=== PATIENT | female | born 1980 | race Caucasian/White ===

== ENCOUNTER 2020-04-30 06:57 | Outpatient (NON) | payer OTHER, SELFPAY ==
[2020-04-30 18:51] LABS: SARS-CoV-2 RNA PCR Negative
== END 2020-04-30 06:58 ==
PROVIDERS: PCP Family Medicine Adolescent Medicine; Visit Provider Family Medicine Adolescent Medicine
DX: Z20.828 Contact with and (suspected) exposure to other viral communicable diseases (principal); R05 Cough; R50.9 Fever, unspecified
CPT/HCPCS: 87635; C9803; U0003

== ENCOUNTER 2021-08-26 14:52 | Outpatient (CLI) | payer OTHER, SELFPAY ==
--- NOTE | ~2021-08-26 | MM_ITS ---
EXAMINATION: MM screening shivani BI w rosy HISTORY: Screening TECHNIQUE: Craniocaudal and mediolateral oblique 3-D tomosynthesis images were obtained and synthetic 2-D images were generated. CAD analysis was submitted and interpreted. COMPARISON: No prior mammogram is available for comparison at this institution. BREAST PARENCHYMAL COMPOSITION: There are scattered areas of fibroglandular density. FINDINGS: There are nodules centered in the outer aspect of the right breast which are partially obsc ured by fibroglandular tissue. There is no mammographic evidence for malignancy in the left breast. IMPRESSION: 1. Nodular asymmetries in the right breast. 2. Additional mammographic views and possible breast ultrasound are recommended. BI-RADS Category 0: Incomplete: Needs additional imaging evaluation. Reviewed, dictated and finalized at location A. IMPRESSION: 1. Nodular asymmetries in the right breast. 2. Additional mammographic views and possible breast ultrasound are recommended . BI-RADS Category 0: Incomplete: Needs additional imaging evaluation.
== END 2021-08-26 14:53 | disposition home or self-care (01) ==
LOC: ANHIMG 14:54
PROVIDERS: PCP Family Medicine Adolescent Medicine; Visit Provider Obstetrics & Gynecology
DX: Z12.31 Encounter for screening mammogram for malignant neoplasm of breast (principal); R92.8 Other abnormal and inconclusive findings on diagnostic imaging of breast
CPT/HCPCS: 77063; 77067

== ENCOUNTER 2021-12-05 13:37 | Outpatient (CLI) | payer OTHER, SELFPAY ==
--- NOTE | ~2021-12-05 | MMUS_ITS ---
EXAMINATION: MM diagnostic shivani RT w rosy, US breast RT limited HISTORY: Right breast asymmetries on screening mammogram TECHNIQUE: Additional 3-D tomosynthesis images of the right breast were performed and synthetic 2-D i mages were generated. CAD analysis was submitted and interpreted. High resolution limited right breas t ultrasound was performed. COMPARISON: 08/26/2021 BREAST PARENCHYMAL COMPOSITION: There are scattered areas of fibroglandular density. FINDINGS: MAMMOGRAPHIC FINDINGS: There is a 5 mm oval, obscured, equal density mass in the anterior third of the lower-outer breast at the 8:00 location 2.5 cm from the nipple. There appears to be an 8 mm oval, obscured, low density ma ss in the middle third of the upper outer quadrant of the breast at the 10:00 location 4 cm from the nipple. ULTRASOUND: A mass with the appearance of an intramammary lymph node is seen at the 7:00 location 3 cm from the n ipple. No sonographic correlate is identified for the apparent low-density mass in the upper outer br east. IMPRESSION: 1. Probably benign mass versus asymmetry in the upper outer quadrant of the right breast. 2. Recommend 6 month follow-up right diagnostic mammogram with possible ultrasound. BI-RADS category 3, probably benign findings. Reviewed, dictated and finalized at location A. IMPRESSION: 1. Probably benign mass versus asymmetry in the upper outer quadrant of the rig ht breast. 2. Recommend 6 month follow-up right diagnostic mammogram with possible ultraso und. BI-RADS category 3, probably benign findings.
== END 2021-12-05 13:38 | disposition home or self-care (01) ==
LOC: ANHIMG 13:39
PROVIDERS: PCP Family Medicine Adolescent Medicine; Visit Provider Obstetrics & Gynecology
DX: R92.8 Other abnormal and inconclusive findings on diagnostic imaging of breast (principal)
CPT/HCPCS: 76642; 77061; 77065; G0279

== ENCOUNTER 2022-08-27 13:55 | Outpatient (CLI) | payer OTHER, SELFPAY ==
--- NOTE | ~2022-08-27 | MMUS_ITS ---
EXAMINATION: MM diagnostic shivani BI w rosy, US breast RT complete HISTORY: Follow-up right breast mass TECHNIQUE: Additional 3-D tomosynthesis images of the breasts were performed and synthetic 2-D images were generated. CAD analysis was submitted and interpreted. High resolution complete right breast ul trasound was performed. COMPARISON: 09/05/2021 BREAST PARENCHYMAL COMPOSITION: Breast composed of scattered areas of fibroglandular density FINDINGS: MAMMOGRAPHIC FINDINGS: Stable 5 mm mass lower outer quadrant of the right breast anteriorly. No new masses, calcifications o r architectural distortion ULTRASOUND: Complete US of all 4 quadrants of the right breast and retroareolar region was reviewed. Normal heter ogeneous echotexture without focal solid or cystic mass. IMPRESSION: 1. Stable right breast mass lower outer quadrant anteriorly without definite sonographic correlate on current study. 2. Recommend 6 month follow-up diagnostic right mammogram. BI-RADS category 3, probably benign findings. Reviewed, dictated and finalized at location A. IMPRESSION: 1. Stable right breast mass lower outer quadrant anteriorly without definite so nographic correlate on current study. 2. Recommend 6 month follow-up diagnostic right mammogram. BI-RADS category 3, probably benign findings.
== END 2022-08-27 13:56 | disposition home or self-care (01) ==
PROVIDERS: PCP Family Medicine Adolescent Medicine; Visit Provider Obstetrics & Gynecology
DX: N63.13 Unspecified lump in the right breast, lower outer quadrant (principal)
CPT/HCPCS: 76641; 77062; 77066; G0279

== ENCOUNTER 2023-07-24 18:23 | Emergency (ER) | payer OTHER, SELFPAY ==
--- NOTE | ~2023-07-24 | XR_ITS ---
EXAMINATION: XR chest 2V Exam Date/Time: 07/24/2023 19:04 [employer] [employer] HISTORY: SOB Comparison: 10/07/2016. RESULT: Lines, tubes, and devices: None. Lungs and pleura: Clear. Cardiomediastinal silhouette: Stable. Other: No acute osseous or upper abdominal finding. IMPRESSION: No acute cardiopulmonary process. Reviewed, dictated and finalized at location K. [facility] [employer]
[2023-07-24 18:30] VITALS: BP 145/87; PULSE 106; RESP 18; TEMP 36.8; O2SAT 99
--- NOTE | 2023-07-24 18:33 | ECG_ITS ---
Measurements Intervals [place] Rate: 102 P: 50 HI: 157 QRS: 15 QRSD: 87 T: 13 QT: 330 QTc: 431 Interpretive Statements SINUS TACHYCARDIA POSSIBLE LEFT ATRIAL ENLARGEMENT DELAYED PRECORDIAL R/S TRANSITION BORDERLINE ST-T WAVE ABNORMALITY- INFERIOR LEADS BORDERLINE ECG NO PREVIOUS ECG AVAILABLE FOR COMPARISON Electronically Signed On 07-24-2023 20:40:27 CONTROL CLERK AUDITING by Nash Frost D.O.
[2023-07-24 18:52] LABS: Basophils Percent Auto 0.3 % (0.2-1.2); Eosinophils Absolute Auto 0.2 K/mm3 (0-0.3); Eosinophils Percent Auto 2.4 % (0-4.4); Hematocrit 39.4 % (37.0-47.0); Hemoglobin 12.7 g/dL (12.0-15.0); Immature Granulocyte Absolute 0.01 K/mm3 (0.00-0.031); Immature Granulocyte Percent A 0.1 % (0-0.5); Lymphocytes Percent Auto 40.4 % (18.3-44.2); Mean Corpuscular HGB Conc 32.2 g/dl (32-36); Mean Corpuscular Hemoglobin 29.7 pg (26-34); Mean Corpuscular Volume 92.3 fl (80-100); Mean Platelet Volume 8.9 fl (7.4-10.4); Monocytes Absolute Auto 0.8 K/mm3 (0.1-0.6); Monocytes Percent Auto 10.5 % (2.6-8.5); Neutrophils Absolute Auto 3.4 K/mm3 (1.3-6.7); Neutrophils Percent Auto 46.3 % (45.5-73.1); Platelet Count Result 293 k/mm3 (150-375); Red Blood Count 4.27 M/mm3 (4.2-5.4); Red Cell Distribution Width 12.5 % (11.5-14.5); White Blood Count 7.4 K/mm3 (4.5-10.0)
[2023-07-24 19:06] LABS: Alanine Aminotransferase 25 U/L (6-35); Albumin Level 4.1 g/dL (3.5-5.1); Alkaline Phosphatase 66 U/L (38-126); Anion Gap 8 mmol/L (8-16); Aspartate Amino Transferase 28 U/L (14-36); Bilirubin,Total 0.3 mg/dL (0.2-1.3); Blood Urea Nitrogen 11 mg/dL (7-17); Calcium 9.1 mg/dL (8.4-10.2); Carbon Dioxide 24 mmol/L (22-30); Chloride 108 mmol/L (98-107); Estimated CRCL calculation 110 ml/min; Estimated Glomerular Filt Rate > 60; Glucose 104 mg/dL (65-110); Potassium 3.4 mmol/L (3.4-5.0); Sodium 140 mmol/L (137-145)
[2023-07-24 19:17] VITALS: PULSE 89; RESP 17; O2SAT 99
--- NOTE | 2023-07-24 19:55 | ED.DIZZY ---
HPI - Dizziness General Chief Complaint: Dizziness <Darian Nixon PA-C - Last Filed: 07/25/23 01:10> Stated Complaint: dizzy, sob, nausea <Darian Nixon PA-C - Last Filed: 07/25/23 01:10> Time Seen by Provider: 07/24/23 19:05 <Darian Nixon PA-C - Last Filed: 07/25/23 01:10> Source: patient <Darian Nixon PA-C - Last Filed: 07/25/23 01:10> Mode of arrival: ambulatory <JULIETTE Aldridge Last Filed: 07/25/23 01:10> Limitations: no limitations <Darian Nixon PA-C - Last Filed: 07/25/23 01:10> History of Present Illness HPI Narrative: This is a 43-year-old who presents to the ED for chief complaint of shortness of breath and dizziness onset 30 minutes ago. Patient tried a 10 mg a THC gummy for the 1st time tonight and had a couple of glasses of alcohol as well. She does not normally drink. States that she started to feel little lightheaded hand her heart rate was elevated on her watch. This caused her to become anxious and come to the ED. since arrival she states symptoms are starting to resolve. <Darian Nixon PA-C - Last Filed: 07/25/23 01:10> Related Data Home Medications: Home Medications Medication Instructions Recorded Confirmed biotin 10,000 mcg chewable tablet mcg PO 07/10/22 07/10/22 (Hair, Skin and Nails (biotin)) desogestrel-e.estradiol 0.15 1 tablet PO DAILY 07/10/22 07/10/22 mg-0.02 mg(21)/e.estrad 0.01 mg(5) tablet (Viorele (28)) lactobacillus combination no.4 3 3,000 mmu cells PO DAILY 07/10/22 07/10/22 billion cell capsule (Probiotic) <JULIETTE Aldridge Last Filed: 07/25/23 01:10> Allergies/Adverse Reactions: Allergies Allergy/AdvReac Type Severity Reaction Status Date / Time latex tape Allergy Mild rash Uncoded 07/10/22 10:19 <Darian Nixon PA-C - Last Filed: 07/25/23 01:10> Review of Systems Review of Systems: All systems as dictated in HPI <Darian Nixon PA-C - Last Filed: 07/25/23 01:10> [facility] Surgical History Surgical History: Surgical History History of tonsillectomy <Darian Nixon PA-C - Last Filed: 07/25/23 01:10> Family History Family History: Family History Mother Family history of osteoarthritis Grandparent Malignant neoplasm of prostate <Darian Nixon PA-C - Last Filed: 07/25/23 01:10> Social History Social History: Social History Smoking status: Never smoker Alcohol intake: current <Darian Nixon PA-C - Last Filed: 07/25/23 01:10> Exam Narrative: GENERAL: Well-appearing, well-nourished, and in no acute distress. HEAD: Normocephalic, atraumatic. EYES: PERRLA and EOMI. ENT: Nares clear, no rhinorrhea or epistaxis. Mucous membranes moist. Oropharynx without tonsillar hypertrophy exudate or other lesions. NECK: Supple. No adenopathy or masses. CHEST: No respiratory distress. Clear to auscultation. No wheezes rales or rhonchi HEART: Regular rate and rhythm. No murmur heard. Normal peripheral pulses. ABDOMEN: Soft, nontender, nondistended, normal active bowel sounds. MSK: Normal range of motion. No edema. SKIN: Warm, dry, no rash. NEURO: Alert and oriented x3. No focal deficits. PSYCH: Normal mood and affect. <Darian Nixon PA-C - Last Filed: 07/25/23 01:10> Course Vital Signs Vital signs: Vital Signs Temperature 98.2 F 07/24/23 18:30 Pulse Rate 106 H 07/24/23 18:30 Respiratory Rate 18 03/02/24 18:30 Blood Pressure 145/87 H 07/24/23 18:30 Pulse Oximetry 99 07/24/23 18:30 Oxygen Delivery Room Air 07/24/23 18:30 Temperature 98.2 F 07/24/23 18:30 Pulse Rate 89 07/24/23 19:17 Respiratory Rate 17 07/24/23 19:17 Blood Pressure 145/87 H 07/24/23 18:30 Pulse Oximetry 99 07/24/23 19:17 Oxygen Delivery Room Air 07/24/23 18:30 <Darian
== END 2023-07-24 20:43 | disposition home or self-care (01) ==
PROVIDERS: Emergency Medicine; Emergency Provider Physician Assistant; PCP Family Medicine Adolescent Medicine
DX: F12.90 Cannabis use, unspecified, uncomplicated (principal); R94.31 Abnormal electrocardiogram [ECG] [EKG]; R00.0 Tachycardia, unspecified
CPT/HCPCS: 36415; 71046; 80053; 85025; 93005; 99284

== ENCOUNTER 2023-10-28 14:24 | Outpatient (CLI) | payer OTHER, SELFPAY ==
--- NOTE | ~2023-10-28 | MM_ITS ---
EXAMINATION: MM screening shivani BI w rosy HISTORY: Screening TECHNIQUE: Craniocaudal and mediolateral oblique 3-D tomosynthesis images were obtained and synthetic 2-D images were generated. CAD analysis was submitted and interpreted. COMPARISON: Comparison to multiple prior studies sequentially, with oldest reviewed study dated 09/2021. BREAST PARENCHYMAL COMPOSITION: Not Dense: The breasts are almost entirely fatty. 2 FINDINGS: There is no evidence of suspicious mass, calcification, or architectural distortion to sugg est malignancy in either breast. There has been no suspicious interval change. IMPRESSION: 1. No mammographic evidence of malignancy. 2. Recommend routine screening mammography in one year. BI-RADS Category 1: Negative Reviewed, dictated and finalized at location B.
== END 2023-10-28 14:25 | disposition home or self-care (01) ==
PROVIDERS: PCP Family Medicine Adolescent Medicine; Visit Provider Nurse Practitioner
DX: Z12.31 Encounter for screening mammogram for malignant neoplasm of breast (principal)
CPT/HCPCS: 77063; 77067

== ENCOUNTER 2023-12-25 07:11 | Outpatient (CLI) | payer OTHER, SELFPAY ==
[2023-12-25 07:40] LABS: Alanine Aminotransferase 29 U/L (6-35); Albumin Level 4.3 g/dL (3.5-5.1); Alkaline Phosphatase 72 U/L (38-126); Anion Gap 10 mmol/L (4-12); Aspartate Amino Transferase 31 U/L (14-36); Bilirubin,Total 0.6 mg/dL (0.2-1.3); Blood Urea Nitrogen 13 mg/dL (7-17); Calcium 9.3 mg/dL (8.4-10.2); Carbon Dioxide 25 mmol/L (22-30); Chloride 105 mmol/L (98-107); Cholesterol 193 mg/dL (0-200); Estimated Glomerular Filt Rate > 60; Glucose 97 mg/dL (65-110); HDL Direct 50 mg/dL; Hematocrit 41.2 % (37.0-47.0); Hemoglobin 13.5 g/dL (12.0-15.0); Mean Corpuscular HGB Conc 32.8 g/dl (32-36); Mean Corpuscular Hemoglobin 30.1 pg (26-34); Mean Corpuscular Volume 91.8 fl (80-100); Mean Platelet Volume 8.9 fl (7.4-10.4); Platelet Count Result 279 k/mm3 (150-375); Potassium 4.1 mmol/L (3.4-5.0); Red Blood Count 4.49 M/mm3 (4.2-5.4); Red Cell Distribution Width 12.1 % (11.5-14.5); Sodium 140 mmol/L (137-145); Triglycerides 99 mg/dL (<150); White Blood Count 5.6 K/mm3 (4.5-10.0)
[2023-12-25 07:52] LABS: LDL Cholesterol Direct 107 mg/dL
[2023-12-25 09:16] LABS: Thyroid Stimulating Hormone Reflex 0.659 uIU/mL (0.465-4.68)
== END 2023-12-25 07:12 | disposition home or self-care (01) ==
PROVIDERS: PCP Family Medicine Adolescent Medicine; Visit Provider Nurse Practitioner Family
DX: R00.1 Bradycardia, unspecified (principal); Z13.220 Encounter for screening for lipoid disorders
CPT/HCPCS: 36415; 80053; 80061; 84443; 85027

== ENCOUNTER 2024-11-29 14:46 | Outpatient (CLI) | payer OTHER, SELFPAY ==
--- NOTE | ~2024-11-29 | MM_ITS ---
EXAMINATION: MM screening [facility] BI w rosy HISTORY: Screening TECHNIQUE: Craniocaudal and mediolateral oblique 3-D tomosynthesis images were obtained and synthetic 2-D images were generated. CAD analysis was submitted and interpreted. COMPARISON: Comparison to multiple prior studies sequentially, with oldest reviewed study dated 09/2021. BREAST PARENCHYMAL COMPOSITION: Not Dense: The breasts are almost entirely fatty. FINDINGS: There is no evidence of suspicious mass, calcification, or architectural distortion to sugg est malignancy in either breast. There has been no suspicious interval change. IMPRESSION: 1. No mammographic evidence of malignancy. 2. Recommend routine screening mammography in one year. BI-RADS Category 1: Negative Reviewed, dictated and finalized at location A.
--- OUTSIDE RECORDS SUMMARY | 2024-11-29 14:51 | XMS_ITS | Data Portability ---
Author Organization [facility] [place] Address [address] [place] [address] Care Team Providers Care Custom Dressmaker Name Role Phone GIULIA PURI Primary Care Provider Assessment Encounter Date Assessment Date Assessment LastModified by Organization Details LastModified Time 06/03/2020 06/03/2020 healthy female exam patient declines std testing pap done, discussed guidelines, q 3 years if normal mammogram at 41 contraception- ocp. will try mircette for JOHNSON on placebo. FU 1 year or prn [email or web address] Not available 06/03/2020 16:01:27 07/16/2021 07/16/2021 healthy female exam patient declines std testing pap due 2023 mammogram- first ordered and encouraged contraception-oc p refilled discussed prehypertension. Has a family history. Will work on exercise and weight loss. May start checking pressures at home. FU 1 year or prn [email or web address] Not available 07/16/2021 16:53:20 07/20/2022 07/20/2022 healthy female exam patient declines std testing pap due next year mammogram discussed was supposed to have diagnostic repeated on right breast last month. screening due in August. likely will be august before gets scheduled for orders given for diagnostic of right and screening of left. contraception-oc p refilled, doing well. BP good today. FU 1 year or prn [email or web address] Not available 07/21/2022 09:21:15 08/05/2023 08/05/2023 Annual gynecological exam performed. Patient will come back in a year unless there are new symptoms. [email or web address] Not available 08/05/2023 16:58:23 09/12/2024 09/12/2024 Annual gynecological exam performed. Patient will come back in a year unless there are new symptoms. [email or web address] Not available 09/12/2024 16:28:00 Plan of Treatment Reminders Order Date Submit Date Provider Last Modified By Organization Details Last Modified Time Details Appointments FOLLOW UP 2024 03:45P DARRION Robertson Not available Not available Not available Lab CMP, serum or plasma 2024 025 [facility] (Lab), [address], [place], [address], 09/13/2024 05:23:14 CBC w/ auto diff 2024 025 [facility] (Lab), [address], [place], [address], 09/13/2024 05:23:13 lipid panel, blood 2024 025 [facility] (Lab), [address], [place], [address], 09/13/2024 05:23:14 HbA1c (hemoglob in A1c), blood 2024 025 [facility] (Lab), [address], [place], [address], 09/13/2024 05:23:16 25-hydrox yvitamin D2 + 25-hydrox yvitamin D3, QN, serum or plasma 2024 025 [facility] (Lab), [address], [place], [address], 09/13/2024 05:23:15 TSH, serum or plasma 2024 025 [facility] (Lab), [address], [place], [address], 09/13/2024 05:23:15 vitamin B12 + folate, serum or blood 2024 025 [facility] (Lab), [address], [place], [address], 09/13/2024 05:23:15 CMP, serum or plasma 2023 024 [facility] (Lab), [address], [place], [address], 02/13/2024 05:00:52 lipid panel, blood 2023 024 [facility] (Lab), [address], [place], [address], 02/13/2024 05:00:52 HbA1c (hemoglob in A1c), blood 2023 024 [facility] (Lab), [address], [place], [address], 02/13/2024 05:00:52 CBC w/ auto diff 2023 024 [facility] (Lab), [address], [place], [address], 02/13/2024 05:00:52 vitamin D, 25-hydrox y, total, serum 2023 024 [facility] (Lab), [address], [place], [address], 02/13/2024 05:00:52 TSH, serum or plasma 2023 024 [facility] (Lab), [address], [place], [address], 02/13/2024 05:00:52 Referral None recorded. Procedures None recorded. Surgeries None recorded. Imaging MAMMO, screening , digital, bilateral [address] [facility], [address] [place] [address] [place] [address], [id number], 09/20/2024 11:47:50 MAMMO, screening , digital, bilateral 2023 024 [facility], [address] [facility], [place], [address], 10/29/2023 12:35:26 Medication Orders estradiol 0.05 mg/24 hr semiweekl y transderm al patch 2024 025 [facility] #32568, [address] [place], [id number], 09/12/2024 16:53:38 Slynd 4 mg (28) tablet 2024 025 [facility] #83315, [address] [place] [address], [id number], 09/12/2024 16:53:58 Slynd 4 mg (28) tablet 2023 024 [facility] #15149, [address] [place] [address], [id number], 08/05/2023 17:32:17 Viorele (28) 0.15 mg-0.02 mg (21)/0.01 mg (5) tablet 2022 023 [facility] #16934, [address] [place] [address], [id number], 08/09/2023 10:50:52 Viorele (28) 0.15 mg-0.02 mg (21)/0.01 mg (5) tablet 2021 022 [facility] #82536, [address] [place] [address], [id number], 08/09/2023 10:50:52 Mircette (28) 0.15 mg-0.02 mg (21)/0.01 mg (5) tablet 2020 021 [facility]82404, [address] [place], [place], [id number], 08/09/2023 10:50:52 Patient TargetsNo targets recorded. Patient InstructionsNo instructions recorded. Reason for Referral None Reported. Results Created Date Observation Date Name Description Value Unit Range Abnormal Flag Note LastModifiedBy Organization Detail LastModifiedTime 06/03/19 21 06/05/2020 pap, LB Pap test thin prep Negati ve for Intrae pithel ial Lesion or Malign zeeshan normal ACCES GARY #: [id number] Sourc e: Cervi huy/E ndoce rvica l LMP: 05-18 Date Taken : 06/03 Speci men Type: ThinP rep Vial Date Repor jeanette: 2020 Clini huy Data: Cytot ech: AURELIA Ramirez( CP) Date Repor jeanette: 2020 Speci men Adequ acy: Satis facto ry for evalu ation Endoc ervic al/tr ansfo rmati on zone compo nent prese nt Gener al Categ oriza tion: NEGAT AZAM FOR INTRA EPITH ELIAL LESIO N OR MALIG DILCIA This speci men has been crystal zed by the ThinP rep Imagi ng Syste m, an inter activ e compu ter syste m which estrella ts the lab in the scree kelby of ThinP rep Pap Test slide jonny butler imagi ng, the slide was revie wed by a Cytot echno logis t and/o r Patho logis t. D N A A S S A Y S R E P O R T TEST NAME RESUL TS ----- ---- ----- -- HPV High Risk Screflorecita n (TMA) ThinP rep Vial The human papil lomav irus (HPV) High Risk Screflorecita n is an FDA-a pprov ed in-vi tro ampli fied nucle ic acid test for the quali tativ e detec tion of E6/E7 viral mRNA. Resul ts shodiallo d be corre lated with patie nt prese ntati on, histo ry, cervi huy cytol ogy and other clini huy and labor atory findi ngs. See https ://SnapMD/s ites/ defau /fi - [id number] _002_ 01.pd f for furth er infor meri n. Test perfo rmed by [facility], d/b/a [employer] roup, [address], [place] [address] , Odilia Cunha ra, , Labor atory Direc tor. HPV High Risk *HPV NOT DETEC JEANETTE (TYPE S 16, 18, 31, 33, 35, 39, 45, 51, 52, 56, 58, 59, 66, 68) *HPV: The human papil lomav irus (HPV) High Risk Tianna grant is an FDA-a pprov ed in-vi tro ampli fied nucle ic acid test for the quali tativ e detec tion of E6/E7 viral mRNA. Resul ts shoul d be corre lated with patie nt prese ntati on, histo ry, cervi huy cytol ogy and other clini huy and labor atory findi ngs. See https ://SnapMD/s ites/ defau lt/fi -0 /AW- [id number] _002_ 01.pd f for furth er infor meri n. Test perfo rmed by [facility], d/b/a [employer] r[facility], [address], [place] [address] , Odilia Cunha ra, , Labor atory Direc tor. End of Repor t Techn ical servi sharon provi ded by [facility], d/b/a [employer] r[facility], [address] [place] [address] You Cutler MD, Labor atory Direc tor. Case revie wed and diagn osis rende red at [facility], d/b/a [facility], [address] , [place] [address] You Cutler MD, Labor atory Dire tor. CONFI DENTI AL Not Available [facility] ([facility]) [address], [place], [address], 06/05/2020 10:22:44 06/03/19 21 06/04/2020 HPV DNA, high- risk HPV high risk NOT DETECT ED normal Not Available [facility] ([facility]) [address], [place], [address], 06/05/2020 10:22:45 08/05/19 24 08/05/2023 IMAGE GUIDE D PAP AND HPV REGAR DLESS image guided Pap, HPV regardless of Pap result SEE RESULT S BELOW CASE REPOR T: Cytol ogy Gynec ologi huy Repor t Case: [id number] Autho irene mercer Provi osorio: Bijal Daniel, EMERGENCY ROOM RN Colle cted: 08/04 1653 Order ing Locat ion: [place] Patho logy Recei tone: 08/05 0553 First Scree n: Raul Beltran , CT Rescr een: Efraín Nguyen, CT Speci men: Tianna hullg Pap - Image d, Cervi x STATE MENT OF ADEQU ACY: Satis facto ry for evalu ation Trans forma tion zone compo nent prese nt FINAL DIAGN OSIS: Negat azam for Intra epith elial Lesaraseli n or Sepideh singh (NIL) . Elect jude arndt d by Efraín Nguyen, CT on 2023 at 10:02 AM ----- ----- ----- ----- ----- ----- ----- ----- ----- ----- ----- ----- ----- ----- ----- ----- ----- ---- HPV RESUL TS: HPV mRNA E6/E7 : No HPV mRNA Detec jeanette NOTE: This high risk HPV mRNA assay detec ts fourt een high- risk HPV types (16, 18, 31, 33, 35, 39, 45, 51, 52, 56, 58, 59, 66, 68) witho ut diffe renti ation . COMME NT: This speci men was revie wed by a Cytot echno logis t and/o r Patho logis t (as indic ated in this repor t) after evalu ation using the Thinp rep Imagi ng Syste m. CLINI HUY INFOR MATIO N: Menst rual Statu s: LMP (if appli cable ): Clini huy Histo ry/Pr eviou s Pap: Type of Neopl elliott (if appli cable ): Signi fican t Clini huy Findi ngs: Other Histo ry: Hormo emery (if appli cable ): PAP EDUCA CHRISTIANO L NOTE: The Pap Test is a scree kelby test with an inher ent false negat azam rate. Liqui d-bas ed sampl ing may decre ase, but will not elimi yazan, false negat azam resul ts. A negat azam resul t does not precl ude the prese nce and/o r devel opmen t of disea se, since the prese nce of abnor mal cells in the sampl e depen ds on the locat ion of the lesio n and sampl ing techn ique. Melly nued regul ar scree kelby is the best metho d of cance r preve ntion . If repor jeanette cytol ogic findi ng do not corre late with physi huy and/o r histo rical findi ngs, furth er inves tigat ion is recom tam d, as clini hank castellanos nted. Not Available [facility] (Lab) [address], [place], [address], 08/11/2023 11:05:50 09/13/19 25 09/12/2024 CBC W/DIF F WBC 11.2 10'3/ uL 3.5-10 .5 high Not Available [facility] (Lab) [address], [place], [address], 09/13/2024 05:23:13 09/13/19 25 09/12/2024 CBC W/DIF F RBC 4.97 10'6/ uL (based on docume nted legal sex) 3.80-5 .20 Not Available [facility] (Lab) [address], [place], [address], 09/13/2024 05:23:13 09/13/19 25 09/12/2024 CBC W/DIF F HGB 14.5 g/dL (based on docume nted legal sex) 11.6-1 5.4 Not Available [facility] (Lab) [address], [place], [address], 09/13/2024 05:23:13 09/13/19 25 09/12/2024 CBC W/DIF F HCT 46.1 % (based on docume nted legal sex) 34.0-4 5.0 high Not Available [facility] (Lab) [address], [place], [address], 09/13/2024 05:23:13 09/13/19 25 09/12/2024 CBC W/DIF F MCV 92.8 fL 80.0-9 9.0 Not Available [facility] (Lab) [address], [place], [address], 09/13/2024 05:23:13 09/13/19 25 09/12/2024 CBC W/DIF F MCH 29.2 pg 27.0-3 4.0 Not Available [facility] (Lab) [address], [place], [address], 09/13/2024 05:23:13 09/13/19 25 09/12/2024 CBC W/DIF F MCHC 31.5 g/dL 32.0-3 5.5 low Not Available [facility] (Lab) [address] [place], [address], 09/13/2024 05:23:13 09/13/19 25 09/12/2024 CBC W/DIF F RDW 13.2 % 11.0-1 5.0 Not Available [facility] (Lab) [address], [place], [address], 09/13/2024 05:23:13 09/13/19 25 09/12/2024 CBC W/DIF F plt 393 10'3/ uL 150-40 0 Not Available [facility] (Lab) [address], [place], [address], 09/13/2024 05:23:13 09/13/19 25 09/12/2024 CBC W/DIF F MPV 9.8 fL 8.8-12 .1 Not Available [facility] (Lab) [address], [place], [address], 09/13/2024 05:23:13 09/13/19 25 09/12/2024 CBC W/DIF F neutrophils 61.4 % 34.0-7 3.0 Not Available [facility] (Lab) [address], [place], [address], 09/13/2024 05:23:13 09/13/19 25 09/12/2024 CBC W/DIF F lymphocytes 29.8 % 15.0-5 0.0 Not Available [facility] (Lab) [address], [place], [address], 09/13/2024 05:23:13 09/13/19 25 09/12/2024 CBC W/DIF F monocytes 6.8 % 1.0-15 .0 Not Available [facility] (Lab) [address], [place], [address], 09/13/2024 05:23:13 09/13/19 25 09/12/2024 CBC W/DIF F eosinophils 1.3 % 0.0-8. 0 Not Available [facility] (Lab) [address], [place], [address], 09/13/2024 05:23:13 09/13/19 25 09/12/2024 CBC W/DIF F basophils 0.4 % 0.0-2. 0 Not Available [facility] (Lab) [address], [place], [address], 09/13/2024 05:23:13 09/13/19 25 09/12/2024 CBC W/DIF F immature granulocytes 0.3 % no define d refere nce range Immat ure Granu locyt es (IG) repre sents autom ated enume ratio n of Metam yeloc ytes, Myelo cytes and Promy elocy zack when IG is < 5%. Blast s are not inclu ded in IG and repor jeanette separ ately if prese nt. Not Available [facility] (Lab) [address], [place], [address], 09/13/2024 05:23:13 09/13/19 25 09/12/2024 CBC W/DIF F absolute neutrophils 6.9 10'3/ uL 1.5-8. 0 Not Available [facility] (Lab) [address], [place], [address], 09/13/2024 05:23:13 09/13/19 25 09/12/2024 CBC W/DIF F absolute lymphocytes 3.3 10'3/ uL 1.0-4. 0 Not Available [facility] (Lab) [address], [place], [address], 09/13/2024 05:23:13 09/13/19 25 09/12/2024 CBC W/DIF F absolute monocytes 0.8 10'3/ uL 0.2-1. 0 Not Available [facility] (Lab) [address], [place], [address], 09/13/2024 05:23:13 09/13/19 25 09/12/2024 CBC W/DIF F absolute eosinophils 0.1 10'3/ uL 0.0-0. 6 Not Available [facility] (Lab) [address], [place], [address], 09/13/2024 05:23:13 09/13/19 25 09/12/2024 CBC W/DIF F absolute basophils 0.1 10'3/ uL 0.0-0. 3 Not Available [facility] (Lab) [address] [facility], [place], [address], 09/13/2024 05:23:13 09/13/19 25 09/12/2024 CBC W/DIF F absolute immature granulocytes 0.0 10'3/ uL 0.00-0 .10 Refer ence range s for nonbi nary/ inter sex or unspe cifie d gende r patie nts have not been estab lishe d. Pleas e refer to the [facility] table for range s estab lishe d for cisge nder patie nts and evalu ate in the clini huy robert xt of the indiv idual patie nt: https ://gio vivar book. nm.or g/gen derx Not Available [facility] (Lab) [address] [facility], [place], [address], 09/13/2024 05:23:13 09/13/19 25 09/12/2024 CMP(C OMPRE HENSI VE METAB OLIC PANEL ) sodium 138 mmol/ L 133-14 6 Not Available [facility] (Lab) [address] [place], [address], 09/13/2024 05:23:14 09/13/19 25 09/12/2024 CMP(C OMPRE HENSI VE METAB OLIC PANEL ) potassium 4.1 mmol/ L 3.5-5. 1 Not Available [facility] (Lab) [address] [facility], [place], [address], 09/13/2024 05:23:14 09/13/19 25 09/12/2024 CMP(C OMPRE HENSI VE METAB OLIC PANEL ) chloride 103 mmol/ L 98-107 Not Available [facility] (Lab) [address] [place], [address], 09/13/2024 05:23:14 09/13/19 25 09/12/2024 CMP(C OMPRE HENSI VE METAB OLIC PANEL ) carbon dioxide 22 mmol/ L 21-31 Not Available [facility] (Lab) [address] [facility], [place], [address], 09/13/2024 05:23:14 09/13/19 25 09/12/2024 CMP(C OMPRE HENSI VE METAB OLIC PANEL ) anion gap 13 mmol/ L 4-13 Not Available [facility] (Lab) [address], [place], [address], 09/13/2024 05:23:14 09/13/19 25 09/12/2024 CMP(C OMPRE HENSI VE METAB OLIC PANEL ) blood urea nitrogen 15 mg/dL 7-25 Not Available [facility] (Lab) [address] [facility], [place], [address], 09/13/2024 05:23:14 09/13/19 25 09/12/2024 CMP(C OMPRE HENSI VE METAB OLIC PANEL ) creatinine 0.77 mg/dL 0.60-1 .30 Not Available [facility] (Lab) [address] [facility], [place], [address], 09/13/2024 05:23:14 09/13/19 25 09/12/2024 CMP(C OMPRE HENSI VE METAB OLIC PANEL ) egfrcr (CKD-epi 2020) >90 mL/mi n/1.7 3_m2 >=60 Not Available [facility] (Lab) [address] [facility], [place], [address], 09/13/2024 05:23:14 09/13/19 25 09/12/2024 CMP(C OMPRE HENSI VE METAB OLIC PANEL ) calcium 9.8 mg/dL 8.3-10 .5 Not Available [facility] (Lab) [address] [facility], [place], [address], 09/13/2024 05:23:14 09/13/19 25 09/12/2024 CMP(C OMPRE HENSI VE METAB OLIC PANEL ) glucose 84 mg/dL 70-100 Not Available [facility] (Lab) [address] [facility], [place], [address], 09/13/2024 05:23:14 09/13/19 25 09/12/2024 CMP(C OMPRE HENSI VE METAB OLIC PANEL ) protein, total 7.7 g/dL 6.4-8. 3 Not Available [facility] (Lab) [address] [facility], [place], [address], 09/13/2024 05:23:14 09/13/19 25 09/12/2024 CMP(C OMPRE HENSI VE METAB OLIC PANEL ) albumin 4.6 g/dL 3.5-5. 0 Not Available [facility] (Lab) [address] [facility], [place], [address], 09/13/2024 05:23:14 09/13/19 25 09/12/2024 CMP(C OMPRE HENSI VE METAB OLIC PANEL ) ALT 25 units /L 9-43 Not Available [facility] (Lab) [address] [facility], [place], [address], 09/13/2024 05:23:14 09/13/19 25 09/12/2024 CMP(C OMPRE HENSI VE METAB OLIC PANEL ) alkaline phosphatase 101 units /L 34-104 Not Available [facility] (Lab) [address] [place], [address], 09/13/2024 05:23:14 09/13/19 25 09/12/2024 CMP(C OMPRE HENSI VE METAB OLIC PANEL ) AST 24 units /L 13-39 Not Available [facility] (Lab) [address] [place], [address], 09/13/2024 05:23:14 09/13/19 25 09/12/2024 CMP(C OMPRE HENSI VE METAB OLIC PANEL ) bilirubin, total 0.3 mg/dL 0.2-1. 2 Not Available [facility] (Lab) [address] [place], [address], 09/13/2024 05:23:14 09/13/19 25 09/12/2024 LIPID PANEL ,AMA (LDL- CALC) total cholesterol 224 mg/dL 0-199 high Not Available [facility] (Lab) [address] [place], [address], 09/13/2024 05:23:14 09/13/19 25 09/12/2024 LIPID PANEL ,AMA (LDL- CALC) triglyceride s 235 mg/dL 0-150 high NCEP Refer ence Value s for Trigl yceri gilberto: Quin l: <150 mg/dL Borde rline High: 150 - 199 mg/dL High: 200 - 499 mg/dL Very High: >/= 500 mg/dL Not Available [facility] (Lab) [address] [place], [address], 09/13/2024 05:23:14 09/13/19 25 09/12/2024 LIPID PANEL ,AMA (LDL- CALC) HDL cholesterol 56 mg/dL >40 Not Available [facility] (Lab) [address] [place], [address], 09/13/2024 05:23:14 09/13/19 25 09/12/2024 LIPID PANEL ,AMA (LDL- CALC) LDL cholesterol 130 mg/dL 0-99 high Cutof f value s recom tam d by the Natio nal Luz stero l Educa tion Progr am: [place]: Luz stero l <200 mg/dL LDL <100 mg/dL BORDE RLINE : Luz stero l 200-2 39 mg/dL LDL 101-1 59 mg/dL HIGHE R RISK: Luz stero l >240 mg/dL LDL >160 mg/dL , HDL <40 mg/dL Not Available [facility] (Lab) [address] [place], [address], 09/13/2024 05:23:14 09/13/19 25 09/12/2024 LIPID PANEL ,AMA (LDL- CALC) non-HDL cholesterol 168 mg/dL no refere nce range A reaso nable goal for non-H DL luz stero l is one that is 30 mg/dL highe r than the LDL luz stero l goal. Not Available [facility] (Lab) [address], [place], [address], 09/13/2024 05:23:14 09/13/19 25 09/12/2024 LIPID PANEL ,AMA (LDL- CALC) chol/HDL ratio 4.0 . 0.0-5. 0 On September 15, 2022, [facility] labor atori alondra cornelius ed the equat ion for calcu latin g estim ated low-d ensit y lipop rotei n-cho leste rol (LDL- C) from the Fried chance equat ion to the Kandy rudy/Hop kins equat ion. This new equat ion is only valid for lipid panel s with trigl yceri gilberto < 400 mg/dL . Matti es have demon strat ed that this new equat ion will impro ve the accur acy of LDL-C , espec ially in scena oconnor when LDL-C zaheer ntrat ions are relat ively low (< 100 mg/dL ), trigl yceri gilberto are eleva jeanette, or patie nt is non-f astin g. Refer ences : - Kandy grant, Chandler Holt, Baron Gaxiola , [facility] js merrill, Daryl Mueller, Daryl meyer, [facility] , and Hernando Stone . 2013. Comp ariso n of a Novel Metho d vs the Fried chance Equat ion for Estim ating Low-D ensit y Lipop rotei n Luz stero l Level s from the Stand kelly Lipid Profi le. PATTI: The Journ al of the Ameri can Medic al Assoc iatio n 310 (19): 2060- . - Fidel hartmann V, Lo Durham, Jazlyn Cat, Anthony M, Demetrio jackson R, Tiffani hartmann E, Adrian lordhal RS, Stone SR, Kandy n SS. Fast ing Versu s Nonfa sting and Low-D ensit y Lipop rotei n Luz stero l Accur acy. Circu kishan n. 2017May 25;137 (1):1 0-19. Not Available [facility] (Lab) [address] [place], [address], 09/13/2024 05:23:14 09/13/19 25 09/12/2024 TSH, REFLE X FREE T4 TSH 0.89 uIU/m L 0.30-5 .33 Not Available [facility] (Lab) [address] [place], [address], 09/13/2024 05:23:14 09/13/19 25 09/12/2024 VITAM IN B12 / FOLAT E PANEL vitamin B12 538 pg/mL 180-91 4 Quin l Range : 180-9 14 pg/mL . Indet ermin ate Range : 145-1 80 pg/mL . Defic ient Range : <=145 pg/mL . Not Available [facility] (Lab) [address] [place], [address], 09/13/2024 05:23:15 09/13/19 25 09/12/2024 VITAM IN B12 / FOLAT E PANEL folate, serum >20.0 NG/mL 6.0-20 .0 high Not Available [facility] (Lab) [address] [place], [address], 09/13/2024 05:23:15 09/13/19 25 09/12/2024 VITAM IN D, 25-OH (TOTA L D2/D3 ) vitamin D, 25-hydroxy, total 50.8 NG/mL 30.0-1 00.0 Sugge stive of Defic iency : <20 ng/mL Sugge stive of Insuf ficie ncy: 20-29 ng/mL Sugge stive of Suffi cienc y: 30-10 0 ng/mL Sugge stive of Toxic ity: >150 ng/mL Not Available [facility] (Lab) [address] [facility], [place], [address], 09/13/2024 05:23:15 09/13/19 25 09/12/2024 HEMOG LOBIN A1C hemoglobin A1C 5.7 % 4.0-5. 6 high The Ameri can Diabe zack Assoc iatio n recom mends that a prima ry goal of thera py shoul d be a HBA1C of < 7% and that physi cians shoul d reeva luate the treat ment regim en in patie nts with HBA1C value s consi stent ly > 8%. <5.7% Quin l 5.7 - 6.4% Incre ased risk for diabe zack >=6.5 % Diagn ostic of diabe zack <7.0% Goal of thera py >8.0% Actio n sugge sted Not Available [facility] (Lab) [address] [facility], [place], [address], 09/13/2024 05:23:16 08/27/19 22 08/26/2021 MAMMO , scree kelby, bilat eral No observ ation record ed. [address], [address], 12/05/2021 10:35:02 08/27/19 22 08/26/2021 MAMMO , scree kelby, bilat eral No observ ation record ed. [address] [address], [place], [address], 12/05/2021 10:35:06 12/06/19 22 12/05/2021 MAMMO , diagn ostic , unila teral No observ ation record ed. [facility] [address], [place], [address], 12/11/2021 16:03:14 08/28/19 23 08/27/2022 MAMMO , diagn ostic , digit al, bilat eral No observ ation record ed. [email or web address] [facility] [address], [place], [address], 08/31/2022 18:01:40 08/28/19 23 08/27/2022 MAMMO , diagn ostic , digit al, bilat eral No observ ation record ed. [email or web address] [facility] [address], [place], [address], 09/02/2022 14:21:04 10/29/19 24 10/28/2023 MAMMO , scree kelby, digit al, bilat eral No observ ation record ed. [facility] (Medical Records) [address], [place], [address], 06/28/2024 09:49:17 Result Notes None recorded. Problems Name Problem SNOMED Code Status Onset Date Resolution Date Notes Provider Name and Address Organization Details Recorded Time Pregnanc y test negative 156903052 Completed 201806/03/2020 Encounte r for pregnanc y test, result negative ;Recorde d Elsewher e: No Locat ion: [facility] S ource: EHR Museum Archivist clarisse: N Practi ce ID: [id number] Alexander lable Time: 02:30:00 PM Kavya Edwards MD [address], [place], [address], [facility] 14:13:01 Screenin g for malignan t neoplasm of cervix Completed 201003/05/2012 Screenin g for malignan t neoplasm s of the cervix;R ecorded Elsewher e: No Locat ion: [facility] S ource: EHR Museum Archivist clarisse: N Practi ce ID: [id number] Alexander lable Time: 02:30:00 PM Kavya Edwards MD [address], [place], [address], [facility] 14:13:03 Speciali zed medical examinat ion Completed 201003/05/2012 Gynecolo gical Examinat ion;Wilfredo rded Elsewher e: No Locat ion: [facility] S ource: EHR Museum Archivist clarisse: N Practi ce ID: [id number] Alexander lable Time: 02:30:00 PM Kavya Edwards MD [address], [place], [address], [facility] 1 14:13:10 Pelvic and perineal pain 798809915 Completed 201806/03/2020 Pelvic pain;Rec orded Elsewher e: No Locat ion: [facility] S ource: EHR Museum Archivist clarisse: N Bassamti ce ID: 0001 Alexander lable Time: 02:30:00 PM Kavya Edwards MD [address], [place], [address], [facility] 14:12:59 Atypical squamous cells of undeterm ined signific ance on cervical Papanico laou smear 647645936 Completed 201606/03/2020 Atyp squam cell of undet signfc cyto smr crvx (ASC-US) ;Recorde d Elsewher e: No Locat ion: [facility] S ource: EHR Museum Archivist clarisse: N Dc ce ID: [id number] Alexander lable Time: 02:00:00 PM Kavya Edwards MD [address], [place], [address], [facility] 1 14:15:20 Speciali zed medical examinat ion Completed 201406/03/2020 Gynecolo gical Examinat ion;Wilfredo rded Elsewher e: No Locat ion: [facility] S ource: EHR Museum Archivist clarisse: N Bassamti ce ID: [id number] Alexander lable Time: 02:30:00 PM Kavya Edwards MD [address], [place], [address], [facility] 01/11/202 [address] 14:13:[address] Concept Completed 201806/03/2020 Encntr for traveling engineer exam (general ) (routine ) w/o abn findings ;Recorde d Elsewher e: No Locat ion: [facility] S ource: EHR Museum Archivist clarisse: N Practi ce ID: [id number] Alexander lable Time: 10:15:00 AM Kavya Edwards MD [address], [place], [address], [facility] 14:13:08 Adult health examinat ion Completed 201406/03/2020 ROUTINE MEDICAL EXAM;Rec orded Elsewher e: No Locat ion: [facility] S ource: EHR Museum Archivist clarisse: N Practi ce ID: [id number] Alexander lable Time: 02:30:00 PM Kavya Edwards MD [address], [place], [address], [facility] 14:12:[address] Concept Completed 201506/03/2020 Encntr for general adult medical exam w/o abnormal findings ;Recorde d Elsewher e: No Locat ion: [facility] S ource: EHR Museum Archivist clarisse: N Practi ce ID: 0001 Aleaxnder lable Time: 11:30:00 AM Kavya Edwards MD [address], [place], [address], [facility] 14:13:06 Screenin g for malignan t neoplasm of cervix Completed 201106/03/2020 Pap Smear;Pr actice ID: [id number] Kavya Edwards MD [address], [place], [address], [facility] 14:13:03 Body mass index 30+ - obesity 278231342 Active 2020 Kavya Edwards MD [address], [place], [address], [facility] 15:59:50 Problem Notes None recorded. Procedures Surgical History Date Name Laterality Status Provider Name and Address Organization Details Recorded Time 08/05/19 24 Date of Last Pap Smear completed Eleonora Cardona [facility] 09/12/2024 16:30:32 08/27/19 22 Date of Last Mammogram completed [facility] 07/20/2022 16:26:57 05/24/18 92 tonsillectomy completed [facility] 06/01/2020 10:43:42 Imaging Results None recorded. Procedure Notes None recorded. Medical Equipment None Reported. Allergies Allergen ID Allergen Name Allergen Category Reaction Reaction Severity Criticality Documentation Date Start Date Code Code System Note Provider Name and Address Organization Details Recorded Time 32215 latex environme nt,medica tion Not available Not available Not available 06/03/2020 07076 91 RxNorm [facility] 14:09:36 Medications Name Sig Start Date Stop Date Status Note LastModified by Organization Details LastModified Time id now influenza a & b 2 test kit TEST DIRECTED TODAY 07/20 completed Not Available Not Available Not Available doxycycli ne hyclate 100 mg capsule TAKE 1 CAPSULE BY MOUTH TWICE DAILY 07/20 completed Not Available Not Available Not Available ciproflox acin 500 mg tablet TAKE 1 TABLET BY MOUTH TWICE DAILY 07/16 completed Not Available Not Available Not Available amoxicill in 875 mg tablet TAKE 1 TABLET BY MOUTH TWICE DAILY UNTIL ALL TAKEN 08/04 completed Not Available Not Available Not Available pantopraz ole 40 mg tablet,de layed release TAKE 1 TABLET BY MOUTH TWICE DAILY FOR 2 WEEKS 07/16 completed Not Available Not Available Not Available HyProst capsule 06/03 completed Prescrib ed Anu e: Yes Loca tion: [facility] M odify By: nathaniel ford DateTime : 06/14/19 14 01:30:00 PM Not Available Not Available Not Available multivita min capsule take 1 capsule by oral route every day 06/03 completed Prescrib ed Elsewher e: Yes Loca tion: [facility] florecita [facility] odify By: nathaniel ford DateTime : 06/14/19 14 01:30:00 PM Not Available Not Available Not Available [place] 3 active Not Available Not Avail able Not Available multivita min active Not Available Not Available Not Available IVETTE (28) 3 mg-0.02 mg tablet take 1 tablet by oral route every day 06/03 completed Prescrib ed Elsewher e: No Locat ion: [facility] odify By: michelle ford DateTime : 07/15/19 18 10:10:51 AM Not Available Not Available Not Available Pristiq 50 mg tablet,ex tended release take 1 tablet by ORAL route every day 03/03 completed Prescrib ed Elsewher e: Yes Loca tion: [facility] odify By: nathaniel ford DateTime : 12/28/19 11 09:16:31 AM Not Available Not Available Not Available Viorele (28) 0.15 mg-0.02 mg (21)/0.01 mg (5) tablet TAKE ONE TABLET BY MOUTH EVERY DAY 08/08 completed Not Available Not Available Not Available Microgest in 24 FE 1 mg-20 mcg (24)/75 mg (4) tablet Take 1 tablet every day by oral route. 06/30 completed Not Available Not Available Not Available Aurovela Fe 1-20 (28) 1 mg-20 mcg (21)/75 mg (7) tablet TAKE 1 TABLET BY MOUTH EVERY DAY 06/30 completed Not Available Not Available Not Available Fluzone Quad (PF) 60 mcg (15 mcg x 4)/0.5 mL IM syringe PHARMACI ST ADMINIST ERED IMMUNIZA TION ADMINIST ERED AT TIME OF DISPENSI NG 07/16 completed Not Available Not Available Not Available Slynd 4 mg (28) tablet TAKE 1 TABLET BY MOUTH EVERY DAY active Not Available Not Available No t Available ID NOW COVID-19 Test Kit TEST DIRECTED TODAY 07/20 completed Not Available Not Available Not Available Fluarix Quad (PF) 60 mcg (15 mcg x 4)/0.5 mL IM syringe ADM 0.5ML IM UTD 07/16 completed Not Available Not Available Not Available Lyllana 0.05 mg/24 hr transderm al patch APPLY 1 PATCH TOPICALL Y TO THE SKIN 2 TIMES A WEEK active Not Available Not Available No t Available Vitals Date Recorded Body weight Body mass index (BMI) Body height Systolic And Diastolic Provider Name and Address Organization Details Last Updated DateTime 06/03/2020 413763.8 g 37 kg/m2 170.18 cm 140/88 mm[Hg] [facility] 06/03/2020 14:08:35 Date Recorded Body height Body mass index (BMI) Body weight Systolic And Diastolic Systolic And Diastolic Provider Name and Address Organization Details Last Updated DateTime 07/16/2021 170.18 cm 34.8 kg/m2 320461.5 1 g 142/92 mm[Hg] 130/90 mm[Hg] [facility] 16:23:30 Date Recorded Body weight Systolic And Diastolic Provider Name and Address Organization Details Last Updated DateTime 07/20/2022 510171.35 g 124/85 mm[Hg] [facility] 07/20/2022 16:25:11 Date Recorded Systolic And Diastolic Provider Name and Address Organization Details Last Updated DateTime 08/05/2023 150/100 mm[Hg] RENETTA Truong [address], [place], [address], [facility] 08/05/2023 17:33:18 Date Recorded Body weight Systolic And Diastolic Provider Name and Address Organization Details Last Updated DateTime 08/05/2023 262617.76 g 157/113 mm[Hg] Fanny Morris [facility] 08/05/2023 17:00:21 Date Recorded Body height Body mass index (BMI) Body weight Systolic And Diastolic Provider Name and Address Organization Details Last Updated DateTime 09/12/2024 170.18 cm 40.9 kg/m2 641996.05 g 135/89 mm[Hg] Eleonora Cardona [facility] 09/12/2024 16:29:02 Social History Question Answer Notes LastModified by Organizat ion Details LastModified Time Tobacco Smoking Status Never Smoker Ana Jones shila, [facility] 06/03/2020 14:09:18 In The 14 Days Before Symptom Onset, Have You Had Close Contact With A Laboratory-confirm ed COVID-19 While That Case Was Ill? No [email or web address] Information n ot available 09/12/2024 In The 14 Days Before Symptom Onset, Have You Had Close Contact With A Person Who Is Under Investigation For COVID-19 While That Person Was Ill? No [email or web address] Information not available 09/12/2024 Have You Been To An Area Known To Be High Risk For COVID-19? No [email or web address] Information not available 09/12/2024 Sex: Unknown Functional Status None recorded. Mental Status None recorded. Family History Nothing Reported Notes:Half sister (M): dyspl elliott Maternal grandfather: Stroke, Heart disease, Hypertension Maternal grandmother: Heart disease Mother: Depression, Hypertension, Diabetes mellitus, Heart issues- has stents. Medical History Condition Response Allergies (Food, seasonal, environmental ) N Other N Drug/Latex Allergies/Reactions N Blood Transfusion N Breast Cancer N Dermatologic Disorders N Lung Disease N Defects or Inherited Disease N Breast Problem N Gestational Diabetes N Hematologic disorders N Anesthesia Complications N History of STI N Deep Vein Thrombosis N Polycystic ovary syndrome N Anxiety Disorder N Autoimmune disease N Arthritis N Polyps N Infertility N Acid Reflux (GERD) N History of abnormal pap N Cancer N Varicosities N Stroke N Neurologic/Epilepsy N Endometriosis N High Cholesterol N Fibromyalgia N Headaches N Kidney Disease N Heart Problems N Thyroid Problems N Kidney or Bladder Problems N GI Problems N Eating Disorder N Anemia N Art (IVF or FET) N Psychiatric Illness N Ovarian Cancer N Diabetes N Pulmonary (TB, Asthma) N Hepatitis/Liver Disease N Eczema N Urinary Tract Infection N Abuse/Domestic Violence N Asthma N Trauma/Violence N Depression/ depression Y Heart Disease N Pre-Eclampsia N Hypertension N Osteoporosis N Thrombophilias N Gynecological History Statement/Question Response Abnormal Pap Y Date of Last Mammogram 08/26/2021 Date of LMP Sexually Active? N STIs/STDs Y Menses Monthly N Date of Last Pap Smear 08/05/2023 Current Control Method BCPs LMP Unknown Obstetrics History GPAL:G 1 P 1 0 0 1 Type Value Full Term 1 Living 1 Total 1 Past Encounters Encounter ID Performer Location Encounter Start Date Encounter Closed Date Diagnosis/Indication Diagnosis SNOMED-CT Code Diagnosis ICD10 Code Diagnosis Note [id number] Kavya Edwards MD [place] [address],[place] [address] 06/03/2020 13:38:19 06/03/2020 16:02:23 Gynecologic examination 30731819 Z01.419 Surveillan ce of oral contraception 392872280 Z30.41 [id number] Kavya Edwards MD [place] [address],[place] [address] 07/16/2021 16:15:27 07/16/2021 17:36:53 Contraception care management 462548070 Z30.9 Gynecologi c examination 86933104 Z01.419 Elevated blood-pressure reading without diagnosis of hypertension 178311607 R03.0 [id number] Kavya Edwards MD [place] [address],[place] [address] 07/20/2022 15:50:25 07/21/2022 16:03:00 Gynecologic examination 80030080 Z01.419 Surveillan ce of oral contraception 221185184 Z30.41 Contracept ion care management 747873715 Z30.9 Mammography abnormal 168 855615 R92.8 [id number] DARRION Truong [place] [address],[place] [address] 08/05/2023 16:52:24 08/09/2023 14:39:31 Gynecologic examination 78494597 Z01.419 WWEpap updateddec lined STI screenmamm ogram orderedfas ting labs orderedenc ouraged annual exam with PCP Suggested Calcium with Vitamin D daily. Patient advised to get an annual flu shot in the fall and she could obtain at [facility] or [facility] take care clinic. Also to obtain TDap vaccinatio n if you have not had one in the last 10 years. Recommend yearly mammograms . Encouraged monthly self breast exams. Encourage safe sexual practices, to use condoms and limit partners if not already in a monogamous relationsh ip. Engage in regular exercise. Avoid tobacco and illicit drugs. This lifestyle behavior pattern will lead to less health conditions and longer life span. If BMI greater than 25 dietary consult advised. All questions have been answered. Patient appears to understand informatio n, but if you have any questions please call or respond to this email. Adult heal th examination 592435050 Z00.00 Screening for malignant neoplasm of breast 194168865 Z12.39 Contracept ion care management 353871357 Z30.9 BP elevated x 2 (encourage d PCP f/u, precaution s reviewed)r ecommended progestero ne only method Discussed all control options in great detail. Pt would like to start POP. She is aware of the risks and benefits. She has contraindi cations to use of OCP or other estrogen containing hormonal therapy. She is aware it is not effective for control the first month. She is also aware of the importance of taking at the same time every day. Encouraged use of condoms as the pill does not protect against STD's. Will return in 3 months for med check. Consent was read and signed. Pt verbalized understand ing. [id number] DARRION Truong [place] [address] [address] 09/12/2024 15:59:24 09/13/2024 13:45:25 Gynecologic examination 38374077 Z01.419 WWEBC - slynd, refills sent x 12 months, r/b/a reviewedPa p - UTD/not indicated todaySTI screen - declinedMa mmogram - order givenColon cancer screening - n/aRoutine labs - orderedRTC in 1 yr or sooner if needed Suggested Calcium with Vitamin D daily. Patient advised to get an annual flu shot in the fall and she could obtain at local pharmacy. Also to obtain TDap vaccinatio n if you have not had one in the last 10 years. Recommend yearly mammograms . Encouraged monthly self breast exams. Encourage safe sexual practices, to use condoms and limit partners if not already in a monogamous relationsh ip. Engage in regular exercise. Avoid tobacco and illicit drugs. This lifestyle behavior pattern will lead to less health conditions and longer life span. If BMI greater than 25 dietary consult advised. All questions have been answered. Screening mammography 24 444563 Z12.31 Adult heal th examination 088202122 Z00.00 Menopause finding 548672 006 N95.1 Reviewed symptoms and management options discussed (hormonal and non-hormon al options reviewed)o pts to add transderma l estradiol , rx sent, r/b/a reviewedwi ll continue slynd (pt aware of need to take progestero ne while on estrogen therapy)qu estions answered, RTC for med check in 3-4 months Time spent in visit is a total of 30 mins with at least 50% of visit consisting of counseling and review of plan of care. Contracept ion care management 730975437 Z30.9 Health Concerns Section Related Observation LastModified by Organization Detai ls LastModified Time None Recorded Concern Status LastModified by Organization Details LastModified Time None Recorded Advance Directives Directive None Recorded Payers Insurance Date Sequence Insurance Name Policy Number Policy Juarez Covered Member ID Juarez Member ID Guarantor Name 07/17/2022 1 [facility] [id number] Franklyn Nolan [id number] Odalys Nolan 09/12/2024 1 [facility] B[employer]EF[employer]AN MANAGEMENT (PPO) [id number] Odalys Nolan [id number] Odalys Nolan Notes Date Note Type Note Provider Name and Address Organization Details Recorded Time 06/03/2020 text/html Patient is a 39y o who presents for an annual exam. Doing well on OCP except getting JOHNSON the placebo week. last pap-2017 sexually active-yes contraception-ocp seatbelts-yes exercise-yes some depression-denies domestic violencedenies- tobacco-no concerns-none Kavya Edwards MD [address], [place], [address], [facility] 06/03/2020 16:01:51 07/16/2021 text/html Patient is a 41y o who presents for an annual exam. No concerns. menstrual JOHNSON doing better on Mircette. last pap-05/2020 NILM mammogram-none sexually active-y contraception-ocp seatbelts-y exercise-n depression-denies domestic violence-denies tobacco-n concerns- Kavya Edwards MD [address], [place], [address], [facility] 07/16/2021 16:53:39 07/20/2022 text/html Patient is a 42y o who presents for an annual exam. NO concerns. DOing well on OCP.last pap- 05/2020 NILM mammogram-diagnostic 11/2021 BIRADS 3, to repeat in 6 mos sexually active-y contraception-ocp, doing well seatbelts-y exercise-y depression-denies domestic violence-denies tobacco-n concerns- Kavya Edwards MD [address], [place], [address], [facility] 07/21/2022 09:21:51 08/05/2023 text/html Annual GYNReport ed bypatient.Menstrual cycle:Normal menses Urinary symptoms:No hematuria; No incontinence Vulva:No genital lesion Vagina:Normal vaginal discharge Breast:No breast pain; No breast lump; No nipple discharge Current Contraception:Satisf ied with current contraception; Oral contraceptives Sexual complaints:No sexual complaints; No pain during intercourse; Normal libido Menopausal Symptoms:No menopausal symptoms; Normal vaginal lubrication Psychological symptoms:No depression; No anxiety; No PMDD Preventive measures:Encourage self breast examination; Encourage regular exercise; Encourage no tobacco use; Encourage regular mammograms starting age 40Notes:last pap 05/2020 - normalon OCPs for BCdenies h/o DVT/PE, HTN, Stroke/MN, cancer, liver disease, or migraine with aurashe is a non-smoker DARRION Truong [address], [place], [address], [facility] 08/09/2023 10:52:02 09/12/2024 text/html Annual GYNReport ed bypatient.Menstrual cycle:Normal menses Urinary symptoms:No hematuria; No incontinence Vulva:No genital lesion Vagina:Normal vaginal discharge Breast:No breast pain; No breast lump; No nipple discharge Current Contraception:Oral contraceptives Sexual complaints:No sexual complaints; No pain during intercourse;Decrease d libido Menopausal Symptoms:Normal vaginal lubrication;Hot flashes;Insomnia due to night sweats Psychological symptoms:No depression; No anxiety; No PMDD Preventive measures:Encourage self breast examination; Encourage regular exercise; Encourage no tobacco use; Encourage regular mammograms starting age 40Notes:44yo wweBc - slyndlast pap 07/2023 : nilm, HPV (-) has questions about perimenopause. Has been experiencing hot flashes, night sweats, weight gain, mood swings DARRION Truong [address], [place], [address], [facility] 09/13/2024 13:32:39 OBGyn Episode Ob Episode Information Episode Created Date Number of Fetuses Patient Bloodtype Patient rh Status Prepregnancy Weight lbs Domestic Partner Domestic Partner Phone Father Name Appian Developer Status 06/01/19 21 1 CLOSED Fetus Data First Name Last Name Admitted to NICU Weight (g) Sex Living Outcome Pediatric Complications Fetus ID Race Codes Race Delivery Type [id number] Vaginal Delivery Mumtaz Calculation Initial Mumtaz Date Initial Exam Date Initial Exam Provider Initial Ultrasound Date Last Menstrual Period Date Ultra Sound Weeks Gestation 0 Eighteen To Twenty Week Mumtaz Update Ultra Sound Date Fundal Height At Umbil Quickening Date Ultra Sound Latest Weeks Gestation Final Mumtaz Confirmed By Final Mumtaz Confirmed Date Final Mumtaz Date Ultra Sound Latest Days Gestation 0 0 Menstrual History Last Menstrual Date Menses Monthly On Bcp Conception Prior Menses Frequency Hcg Plus Date Menarche Onset Age Delivery Information Delivery Date Delivery Type Labor Anesthesia Weeks Gestation Incision Type Labor Labor Length Hrs Delivered By Post Complications Tubal Sterilization Discharge Date Comments 6 Discharge Information Feeding Method Contraceptive Method Maternal HG B and HCT Levels
--- OUTSIDE RECORDS SUMMARY | 2024-11-29 14:51 | XMS_ITS | Clinical Summary ---
Author Organization [facility] [employer] Address [address] [place] [id number] Care Team Providers Care [employer] Be[employer]er Name Role Phone Davidson Loza MD Primary Care Provider [phone] Active Problems No known active problems Immunizations Immunization Administration Dates Next Due INFLUENZA VACCINE QUADRIVALENT 3 YR UP PF IM 09/2021 INFLUENZA VACCINE QUADRIVALENT 6 MOS UP PF IM ,02/21/2021 INFLUENZA VACCINE TRIVALENT SPLIT VIRUS, (6 MOS UP), 0.5ML (PF), IM 02/23/2024 Social History Tobacco Use Types Packs/Day Years Used Date Smoking Tobacco: Never Assessed Comments Unknown Sex and Gender Information Value Date Recorded Sex Assigned at Not on file Legal Sex Female 1:49 PM [employer] Gender Identity Not on file Sexual Orientation Not on file Last Filed Vital Signs Vital Sign Reading Time Taken Comments Blood Pressure 138/86 08/17/2023 7:43 AM CDT Pulse - - Temperature - - Respiratory Rate - - Oxygen Saturation - - Inhaled Oxygen Concentration - - Weight 111.1 kg (245 lb) 08/17/2023 7:43 AM CDT Height 170.2 cm (5' 7) 08/17/2023 7:43 AM CDT Body Mass Index 38.37 08/17/2023 7:43 AM CDT Plan of Treatment Health Maintenance Due Date Last Done Comments DTAP/TDAP/TD VACCINES (1 - Tdap) 2000 HEPATITIS B VACCINES (1 of 3 - 19+ 3-dose series) 2000 HPV/Cotest (21-29) 2002 HPV/Cotest (30-65) 2011 BREAST CANCER SCREENING 2021 INFLUENZA VACCINE (#1) 2024 , 02/17/2023, 02/25/2022, Additional history exists CERVICAL CANCER SCREENING 08/04/2026 PAP SMEAR 08/04/2026 08/05/2023, 07/05/2017 HPV VACCINES Aged Out No longer eligi ble based on patient's age to complete this topic Insurance [employer] Care Teams [employer] Relationship Specialty Start Date End Date Davidson Loza MD PCP - General Family Practice 09/25/22
== END 2024-11-29 14:47 | disposition home or self-care (01) ==
LOC: ANHIMG 14:48
PROVIDERS: PCP Family Medicine Adolescent Medicine; Visit Provider Nurse Practitioner
DX: Z12.31 Encounter for screening mammogram for malignant neoplasm of breast (principal)
CPT/HCPCS: 77063; 77067

== ENCOUNTER 2025-03-23 20:26 | Emergency (ER) | payer OTHER, SELFPAY ==
[2025-03-23] VITALS (17 sets, daily range): BP systolic 117–146; BP diastolic 89–100; PULSE 78–93; RESP 15–22; TEMP 36.8; O2SAT 97–100
--- NOTE | ~2025-03-23 | XR_ITS ---
XR chest 2V HOSTORY: cp sob COMPARISON:[ None] FINDINGS: Frontal and lateral views of the chest were obtained. The lungs are clear. The heart size is normal in size. Pulmonary vasculature is unremarkable. Osseous structures are intact. IMPRESSION: No acute lung findings.] [ ] Reviewed, dictated and finalized at location S.
--- NOTE | 2025-03-23 20:27 | ECG_ITS ---
Test Date: 2025-03-23 20:38:21 Measurements Intervals [place] Rate: 89 P: 44 MI: 168 QRS: 17 QRSD: 80 T: 37 QT: 340 QTc: 415 Interpretive Statements SINUS RHYTHM POSSIBLE LEFT ATRIAL ENLARGEMENT DELAYED PRECORDIAL R/S TRANSITION BASELINE ARTIFACT- I, II, III, AVR, AVL, AVF BORDERLINE ECG No previous ECG available for comparison Electronically Signed On 03-23-2025 22:02:58 CDT by Nash Frost D.O.
[2025-03-23] MEDS: ASPIRIN 81 MG CHEWABLE TABLET 324 MG PO (22:17)
--- OUTSIDE RECORDS SUMMARY | 2025-03-23 22:36 | XMS_ITS | Clinical Summary ---
Author Organization [facility] Address [address] [address] Care Team Providers Care Finance Attorney Name Role Phone Davidson Loza MD Primary Care Provider [phone] Active Problems No known active problems Encounters Date Type Department Care Team Description 03/21/2025 External Device Data [facility] ABSTRACTION Provider, Abstract 03/20/2025 External Device Data [facility] ABSTRACTION Provider, Abstract 03/01/2025 9:00 AM CDT Immunization [facility] [address] [place] [address] Need for vaccination (Primary Dx) from Last 3 Months Immunizations Immunization Administration Dates Next Due INFLUENZA VACCINE QUADRIVALENT 3 YR UP PF IM 09/2021 INFLUENZA VACCINE QUADRIVALENT 6 MOS UP PF IM ,02/21/2021 INFLUENZA VACCINE TRIVALENT SPLIT VIRUS, (6 MOS UP), 0.5ML (PF), IM 03/01/2025,02/23/2024 Social History Tobacco Use Types Packs/Day Years Used Date Smoking Tobacco: Never Assessed Comments Unknown Sex and Gender Information Value Date Recorded Sex Assigned at Not on file 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 Gender Identity Not on file Sexual Orientation [...] Health Maintenance Due Date Last Done Comments Pre-Diabetes and Diabetes Screening 1981 DTAP/TDAP/TD VACCINES (1 - Tdap) 2000 HEPATITIS B VACCINES (1 of 3 - 19+ 3-dose series) 2000 HPV/Cotest (21-29) 2002 HPV VACCINES (1 - 3-dose SCD M series) 2008 HPV/Cotest (30-65) 2011 BREAST CANCER SCREENING 2021 CERVICAL CANCER SCREENING 08/04/2026 PAP SMEAR 08/04/2026 08/05/2023, 07/05/2017 INFLUENZA VACCINE Completed 03/01/2025, , 02/17/2023, Additional history exists Insurance [employer] Care Teams Finance Attorney Relationship Specialty Start Date End Date Davidson Loza MD PCP - General Family Practice 09/25/22
--- OUTSIDE RECORDS SUMMARY | 2025-03-23 22:36 | XMS_ITS | Data Portability ---
Author Organization [facility] Address [address] [place] [address] Care Team Providers Care Director Loss Prevention Name Role Phone GIULIA PURI Primary Care Provider Assessment Encounter Date Assessment Date Assessment LastModified by Organization Details LastModified Time 07/16/2021 07/16/2021 healthy female exam patient declines std testing pap due 2023 mammogram- first ordered and encouraged contraception-oc p refilled discussed prehypertension. Has a family history. Will work on exercise and weight loss. May start checking pressures at home. FU 1 year or prn [email or web address] Not available 07/16/2021 16:53:20 07/20/2022 07/20/2022 healthy [...] good today. FU 1 year or prn [email or web address] Not available 07/21/2022 09:21:15 08/05/2023 08/05/2023 Annual gynecological exam performed. Patient will come back in a year unless there are new symptoms. [email or web address] Not available 08/05/2023 16:58:23 09/12/2024 09/12/2024 Annual gynecological exam performed. Patient will come back in a year unless there are new symptoms. [email or web address] Not available 09/12/2024 16:28:00 Plan of Treatment Reminders Order Date Submit Date Provider Last Modified By Organization Details Last Modified Time Details Appointments None recorded. Lab CMP, serum or plasma 2024 025 [facility] (Lab), [address], [place], [address], 5 05:23:14 CBC w/ auto diff 2024 025 Health system (Lab), [address], [place], [address], 5 05:23:13 lipid panel, blood 2024 025 Health system (Lab), [address], [place], [address], 5 05:23:14 HbA1c (hemoglobin A1c), blood 2024 025 Health system (Lab), [address], [place], [address], 5 05:23:16 25-hydroxyv itamin D2 + 25-hydroxyv itamin D3, QN, serum or plasma 2024 025 Health system (Lab), [address], [place], [address], 5 05:23:15 TSH, serum or plasma 2024 025 Health system (Lab), [address], [place], [address], 5 05:23:15 vitamin B12 + folate, serum or blood 2024 025 Health system (Lab), [address] [place], [address], 5 05:23:15 CMP, serum or plasma 2023 024 Health system (Lab), [address] [place], [address], 4 05:00:52 lipid panel, blood 2023 024 Health system (Lab), [address], [place], [address], 4 05:00:52 HbA1c (hemoglobin A1c), blood 2023 024 Health system (Lab), [address], [place], [address], 4 05:00:52 CBC w/ auto diff 2023 024 Health system (Lab), [address], [place], [address], 4 05:00:52 vitamin D, 25-hydroxy, total, serum 2023 024 Health system (Lab), [address], [place], [address], 4 05:00:52 TSH, serum or plasma 2023 024 Health system (Lab), [address], [place], [address], 4 05:00:52 Referral None recorded. Procedures None recorded. Surgeries None recorded. Imaging MAMMO, screening, digital, bilateral [address] [facility], [address] [facility] [address] [place] [address], [id number], 5 11:47:50 MAMMO, screening, digital, bilateral 2023 024 [facility], [address] [facility], [place], [address], 4 12:35:26 Medication Orders estradiol 0.05 mg/24 hr semiweekly transdermal patch 2024 025 [facility] #56840, [address], [place], [id number], 5 09:45:12 Zepbound 2.5 mg/0.5 mL subcutaneou s pen injector 2024 025 [facility] #48753, [address] [place] [address], [id number], 5 16:37:24 Slynd 4 mg (28) tablet 2024 025 [facility] #91970, [address] [place] [address], [id number], 5 09:45:12 estradiol 0.05 mg/24 hr semiweekly transdermal patch 2024 025 [facility] #40877, [address] [place] [address], [id number], 5 16:53:38 Slynd 4 mg (28) tablet 2024 025 [facility] #00407, [address] [place] [address], [id number], 5 16:53:58 Slynd 4 mg (28) tablet 2023 024 [facility] #71924, [address] [place] [address], [id number], 4 17:32:17 Viorele (28) 0.15 mg-0.02 mg (21)/0.01 mg (5) tablet 2022 023 [facility], [address] [place] [address], [id number], 4 10:50:52 Viorele (28) 0.15 mg-0.02 mg (21)/0.01 mg (5) tablet 2021 022 [facility]99271, [address] [place], [place], [id number], 4 10:50:52 Patient TargetsNo targets recorded. Patient InstructionsNo instructions recorded. Reason for Referral None Reported. Results Created Date Observation Date Name Description Value Unit Range Abnormal Flag Note LastModifiedBy Organization Detail LastModifiedTime 08/05/1908/05/2023 IMAGE GUIDE D PAP AND HPV REGAR DLESS image guided Pap, HPV regardless of Pap result SEE RESULT S BELOW CASE REPOR T: Cytol ogy Gynec ologi huy Repor t Case: [id number] Autho irene mercer Provi osorio: Bijal Daniel, DEIDRA Colle cted: 08/04 1653 Order ing Locat ion: [place] [facility] Recei tone: 08/05 0553 First Scree n: Raul Beltran , AURELIA Rescr een: Efraín Nguyen, AURELIA Speci men: Screflorecita hullg Pap - Image d, Cervi x STATE MENT OF ADEQU ACY: Satis facto ry for evalu ation Trans forma tion zone compo nent prese nt FINAL DIAGN OSIS: Negat chico for Intra epith elial Tone grant or Sepideh singh (NIL) . Elect jude sánchez hair d by Efraín Nguyen, CT on 2023 [...] test with an inher ent false negat chico rate. Liqui d-bas ed sampl ing may decre ase, but will not elimi yazan, false negat chico resul ts. A negat chioc resul t does not precl ude the [...] as clini hank castellanos nted. Not Available [facility] (Lab) [address], [place], [address], 08/11/2023 11:05:50 09/13/19 25 09/12/2024 CBC W/DIF F WBC 11.2 10'3/ uL 3.5-10 .5 high Not Available [facility] (Lab) [address], [place], [address], 09/13/2024 05:23:13 09/13/19 25 09/12/2024 CBC W/DIF F RBC 4.97 10'6/ uL (based on docume nted legal sex) 3.80-5 .20 Not Available [facility] (Lab) [address], [place], [address], 09/13/2024 05:23:13 09/13/19 25 09/12/2024 CBC W/DIF F HGB 14.5 g/dL (based on docume nted legal sex) 11.6-1 5.4 Not Available [facility] (Lab) [address] [facility], [place], [address], 09/13/2024 05:23:13 09/13/19 25 09/12/2024 CBC W/DIF F HCT 46.1 % (based on docume nted legal sex) 34.0-4 5.0 high Not Available [facility] (Lab) [address], [place], [address], 09/13/2024 05:23:13 09/13/19 25 09/12/2024 CBC W/DIF F MCV 92.8 fL 80.0-9 9.0 Not Available [facility] (Lab) [address] [facility], [place], [address], 09/13/2024 05:23:13 09/13/19 25 09/12/2024 CBC W/DIF F MCH 29.2 pg 27.0-3 4.0 Not Available [facility] (Lab) [address] [facility], [place], [address], 09/13/2024 05:23:13 09/13/19 25 09/12/2024 CBC W/DIF F MCHC 31.5 g/dL 32.0-3 5.5 low Not Available [facility] (Lab) [address] [place], [address], 09/13/2024 05:23:13 09/13/19 25 09/12/2024 CBC W/DIF F RDW 13.2 % 11.0-1 5.0 Not Available [facility] (Lab) [address] [facility], [place], [address], 09/13/2024 05:23:13 09/13/19 25 09/12/2024 CBC W/DIF F plt 393 10'3/ uL 150-40 0 Not Available [facility] (Lab) [address] [facility], [place], [address], 09/13/2024 05:23:13 09/13/19 25 09/12/2024 CBC W/DIF F MPV 9.8 fL 8.8-12 .1 Not Available [facility] (Lab) [address] [facility], [place], [address], 09/13/2024 05:23:13 09/13/19 25 09/12/2024 CBC W/DIF F neutrophils 61.4 % 34.0-7 3.0 Not Available [facility] (Lab) [address] [facility], [place], [address], 09/13/2024 05:23:13 09/13/19 25 09/12/2024 CBC W/DIF F lymphocytes 29.8 % 15.0-5 0.0 Not Available [facility] (Lab) [address] [facility], [place], [address], 09/13/2024 05:23:13 09/13/19 25 09/12/2024 CBC W/DIF F monocytes 6.8 % 1.0-15 .0 Not Available [facility] (Lab) [address] [facility], [place], [address], 09/13/2024 05:23:13 09/13/19 25 09/12/2024 CBC W/DIF F eosinophils 1.3 % 0.0-8. 0 Not Available [facility] (Lab) [address] [facility], [place], [address], 09/13/2024 05:23:13 09/13/19 25 09/12/2024 CBC W/DIF F basophils 0.4 % 0.0-2. 0 Not Available [facility] (Lab) [address], [place], [address], 09/13/2024 05:23:13 09/13/19 25 09/12/2024 CBC W/DIF [...] separ ately if prese nt. Not Available [facility] (Lab) [address], [place], [address], 09/13/2024 05:23:13 09/13/19 25 09/12/2024 CBC W/DIF F absolute neutrophils 6.9 10'3/ uL 1.5-8. 0 Not Available [facility] (Lab) [address] [facility], [place], [address], 09/13/2024 05:23:13 09/13/19 25 09/12/2024 CBC W/DIF F absolute lymphocytes 3.3 10'3/ uL 1.0-4. 0 Not Available [facility] (Lab) [address], [place], [address], 09/13/2024 05:23:13 09/13/19 25 09/12/2024 CBC W/DIF F absolute monocytes 0.8 10'3/ uL 0.2-1. 0 Not Available [facility] (Lab) [address], [place], [address], 09/13/2024 05:23:13 09/13/19 25 09/12/2024 CBC W/DIF F absolute eosinophils 0.1 10'3/ uL 0.0-0. 6 Not Available [facility] (Lab) [address], [place], [address], 09/13/2024 05:23:13 09/13/19 25 09/12/2024 CBC W/DIF F absolute basophils 0.1 10'3/ uL 0.0-0. 3 Not Available [facility] (Lab) [address], [place], [address], 09/13/2024 05:23:13 09/13/19 25 09/12/2024 CBC W/DIF F absolute immature granulocytes 0.0 10'3/ uL 0.00-0 .10 Refer ence range s for nonbi nary/ inter sex or unspe cifie d gende r patie nts have not been estab lishe d. Pleas e refer to the bulmaroo wing table for range s estab lishe d for cisge nder patie nts and evalu ate in the clini huy robert xt of the indiv idual patie nt: https ://gio vivar book. nm.or g/gen derx Not Available [facility] (Lab) [address], [place], [address], 09/13/2024 05:23:13 09/13/19 25 09/12/2024 CMP(C OMPRE HENSI VE METAB OLIC PANEL ) sodium 138 mmol/ L 133-14 6 Not Available [facility] (Lab) [address] [place], [address], 09/13/2024 05:23:14 09/13/19 25 09/12/2024 CMP(C OMPRE HENSI VE METAB OLIC PANEL ) potassium 4.1 mmol/ L 3.5-5. 1 Not Available [facility] (Lab) [address], [place], [address], 09/13/2024 05:23:14 09/13/19 25 09/12/2024 CMP(C OMPRE HENSI VE METAB OLIC PANEL ) chloride 103 mmol/ L 98-107 Not Available [facility] (Lab) [address] [place], [address], 09/13/2024 05:23:14 09/13/19 25 09/12/2024 CMP(C OMPRE HENSI VE METAB OLIC PANEL ) carbon dioxide 22 mmol/ L 21-31 Not Available [facility] (Lab) [address] [facility], [place], [address], 09/13/2024 05:23:14 09/13/19 25 09/12/2024 CMP(C OMPRE HENSI VE METAB OLIC PANEL ) anion gap 13 mmol/ L 4-13 Not Available [facility] (Lab) [address] [facility], [place], [address], 09/13/2024 05:23:14 09/13/19 25 09/12/2024 CMP(C OMPRE HENSI VE METAB OLIC PANEL ) blood urea nitrogen 15 mg/dL 7-25 Not Available [facility] (Lab) [address] [facility], [place], [address], 09/13/2024 05:23:14 09/13/19 25 09/12/2024 CMP(C OMPRE HENSI VE METAB OLIC PANEL ) creatinine 0.77 mg/dL 0.60-1 .30 Not Available [facility] (Lab) [address] [facility], [place], [address], 09/13/2024 05:23:14 09/13/19 25 09/12/2024 CMP(C OMPRE HENSI VE METAB OLIC PANEL ) egfrcr (CKD-epi 2020) >90 mL/mi n/1.7 3_m2 >=60 Not Available [facility] (Lab) [address] [facility], [place], [address], 09/13/2024 05:23:14 09/13/19 25 09/12/2024 CMP(C OMPRE HENSI VE METAB OLIC PANEL ) calcium 9.8 mg/dL 8.3-10 .5 Not Available [facility] (Lab) [address] [facility], [place], [address], 09/13/2024 05:23:14 09/13/19 25 09/12/2024 CMP(C OMPRE HENSI VE METAB OLIC PANEL ) glucose 84 mg/dL 70-100 Not Available [facility] (Lab) [address] [facility], [place], [address], 09/13/2024 05:23:14 09/13/19 25 09/12/2024 CMP(C OMPRE HENSI VE METAB OLIC PANEL ) protein, total 7.7 g/dL 6.4-8. 3 Not Available [facility] (Lab) [address] [facility], [place], [address], 09/13/2024 05:23:14 09/13/19 25 09/12/2024 CMP(C OMPRE HENSI VE METAB OLIC PANEL ) albumin 4.6 g/dL 3.5-5. 0 Not Available [facility] (Lab) [address] [facility], [place], [address], 09/13/2024 05:23:14 09/13/19 25 09/12/2024 CMP(C OMPRE HENSI VE METAB OLIC PANEL ) ALT 25 units /L 9-43 Not Available [facility] (Lab) [address] [facility], [place], [address], 09/13/2024 05:23:14 09/13/19 25 09/12/2024 CMP(C OMPRE HENSI VE METAB OLIC PANEL ) alkaline phosphatase 101 units /L 34-104 Not Available [facility] (Lab) [address] [place], [address], 09/13/2024 05:23:14 09/13/19 25 09/12/2024 CMP(C OMPRE HENSI VE METAB OLIC PANEL ) AST 24 units /L 13-39 Not Available [facility] (Lab) [address] [place], [address], 09/13/2024 05:23:14 09/13/19 25 09/12/2024 CMP(C OMPRE HENSI VE METAB OLIC PANEL ) bilirubin, total 0.3 mg/dL 0.2-1. 2 Not Available [facility] (Lab) [address] [place], [address], 09/13/2024 05:23:14 09/13/19 25 09/12/2024 LIPID PANEL ,AMA (LDL- CALC) total cholesterol 224 mg/dL 0-199 high Not Available [facility] (Lab) [address] [place], [address], 09/13/2024 05:23:14 09/13/19 25 09/12/2024 LIPID PANEL ,AMA (LDL- CALC) triglyceride s 235 mg/dL 0-150 high NCEP Refer ence Value s for Trigl yceri gilberto: Quin l: <150 mg/dL Borde rline High: 150 - 199 mg/dL High: 200 - 499 mg/dL Very High: >/= 500 mg/dL Not Available [facility] (Lab) [address] [place], [address], 09/13/2024 05:23:14 09/13/19 25 09/12/2024 LIPID PANEL ,AMA (LDL- CALC) HDL cholesterol 56 mg/dL >40 Not Available [facility] (Lab) [address] [place], [address], 09/13/2024 05:23:14 09/13/19 25 09/12/2024 LIPID PANEL [...] mg/dL , HDL <40 mg/dL Not Available [facility] (Lab) [address] [place], [address], 09/13/2024 05:23:14 09/13/19 25 09/12/2024 LIPID PANEL ,AMA (LDL- CALC) non-HDL cholesterol 168 mg/dL no refere nce range A reaso nable goal for non-H DL luz stero l is one that is 30 mg/dL highe r than the LDL luz stero l goal. Not Available [facility] (Lab) [address], [place], [address], 09/13/2024 05:23:14 09/13/1909/12/2024 LIPID PANEL ,AMA (LDL- CALC) chol/HDL ratio 4.0 . 0.0-5. 0 On September 15, 2022, [facility] labor atori alondra cornelius ed the equat ion for calcu latin g estim ated low-d ensit y lipop rotei n-cho leste rol (LDL- C) from the Fried chance equat ion to the Kandy n/Hop kins equat ion. This new equat ion [...] Kandy grant, Chandler Holt, Baron Gaxiola , [facility] js merrill, Daryl Mueller, Daryl meyer, Joel stanford , and Hernando Stone . 2013. Comp ariso n of a Novel Metho d vs the Fried chance Equat ion for Estim ating Low-D ensit y Lipop rotei n Luz stero l Level s from the Stand kelly Lipid Profi le. PATTI: The Journ al of the Ameri can Medic al Assoc iatio n 310 (19): 2060- . - Fidel hartmann V, Lo J, Jazlyn hartmann A, Anthony M, Demetrio bernabe R, Tiffani hartmann E, Adrian stanford RS, Chase SR, Kandy n SS. Fast ing Versu s Nonfa sting and Low-D ensit y Lipop rotei n Luz stero l Accur acy. Circu kishan n. 2017May 25;137 (1):1 0-19. Not Available [facility] (Lab) [address] [facility], [place], [address], 09/13/2024 05:23:14 09/13/19 25 09/12/2024 TSH, REFLE X FREE T4 TSH 0.89 uIU/m L 0.30-5 .33 Not Available [facility] (Lab) [address] [facility], [place], [address], 09/13/2024 05:23:14 09/13/19 25 09/12/2024 VITAM IN B12 / FOLAT E PANEL vitamin B12 538 pg/mL 180-91 4 Quin l Range : 180-9 14 pg/mL . Indet ermin ate Range : 145-1 80 pg/mL . Defic ient Range : <=145 pg/mL . Not Available [facility] (Lab) [address] [facility], [place], [address], 09/13/2024 05:23:15 09/13/19 25 09/12/2024 VITAM IN B12 / FOLAT E PANEL folate, serum >20.0 NG/mL 6.0-20 .0 high Not Available [facility] (Lab) [address] [facility], [place], [address], 09/13/2024 05:23:15 09/13/19 25 09/12/2024 VITAM IN D, 25-OH (TOTA L D2/D3 ) vitamin D, 25-hydroxy, total 50.8 NG/mL 30.0-1 00.0 Sugge stive of Defic iency : <20 ng/mL Sugge stive of Insuf ficie ncy: 20-29 ng/mL Sugge stive of Suffi cienc y: 30-10 0 ng/mL Sugge stive of Toxic ity: >150 ng/mL Not Available [facility] (Lab) [address] [facility], [place], [address], 09/13/2024 05:23:15 09/13/19 25 09/12/2024 HEMOG LOBIN A1C hemoglobin A1C 5.7 % 4.0-5. 6 high The Ameri can Diabe zack Assoc iatio n recom mends that a prima ry goal of thera py joaquinaul d be a HBA1C of < 7% and that physi cians shoul d reeva luate the treat ment regim en in patie nts with HBA1C value s consi stent ly > 8%. <5.7% Quin l 5.7 - 6.4% Incre ased risk for diabe zack >=6.5 % Diagn ostic of diabe zack <7.0% Goal of thera py >8.0% Actio n sugge sted Not Available [facility] (Lab) [address] [facility], [place], [address], 09/13/2024 05:23:16 08/27/19 22 08/26/2021 MAMMO , scree kelby, bilat eral No observ ation record ed. [address], [address], 12/05/2021 10:35:02 08/27/19 22 08/26/2021 MAMMO , scree kelby, bilat eral No observ ation record ed. [address], [address], 12/05/2021 10:35:06 12/06/19 22 12/05/2021 MAMMO , diagn ostic , unila teral No observ ation record ed. [facility] [address] [address], [place], [address], 12/11/2021 16:03:14 08/28/19 23 08/27/2022 MAMMO , diagn ostic , digit al, bilat eral No observ ation record ed. [email or web address] [place], [address], 08/31/2022 18:01:40 08/28/19 23 08/27/2022 MAMMO , diagn ostic , digit al, bilat eral No observ ation record ed. [address] [facility] [address], [place], [address], 09/02/2022 14:21:04 10/29/19 24 10/28/2023 MAMMO , scree kelby, digit al, bilat eral No observ ation record ed. [facility] (Medical Records) [address] [facility] [address], [place], [address], 06/28/2024 09:49:17 12/01/19 25 11/29/2024 MAMMO , scree kelby, digit al, bilat eral No observ ation record ed. [facility] [address] [facility], [place], [address], 12/14/2024 04:11:38 Result Notes None recorded. Problems Name Problem SNOMED Code Status Onset Date Resolution Date Notes Provider Name and Address Organization Details Recorded Time Screenin g for malignan t neoplasm of cervix Completed 201003/05/2012 Screenin g for malignan t neoplasm s of the cervix;R ecorded Elsewher e: No Locat ion: [facility] S ource: EHR Flux Core Welder clarisse: N Dc ce ID: [id number] Alexander lable Time: 02:30:00 PM Kavya Edwards MD [address], [place], [address], [facility] 14:13:03 Speciali zed medical examinat ion Completed 201003/05/2012 Gynecolo gical Examinat ion;Wilfredo rded Elsewher e: No Locat ion: [facility] S ource: EHR Flux Core Welder clarisse: N Dc ce ID: [id number] Alexander lable Time: 02:30:00 PM Kavya Edwards MD [address], [place], [address], [facility] 1 14:13:10 Screenin g for malignan t neoplasm of cervix Completed 201106/03/2020 Pap Smear;Pr actice ID: [id number] Kavya Edwards MD [address], [place], [address], [facility] 14:13:03 Speciali zed medical examinat ion Completed 201406/03/2020 Gynecolo gical Examinat ion;Wilfredo rded Elsewher e: No Locat ion: [facility] S ource: EHR Flux Core Welder clarisse: N Practi ce ID: [id number] Alexander lable Time: 02:30:00 PM Kavya Edwards MD [address], [place], [address], [facility] 14:13:10 Adult health examinat ion Completed 201406/03/2020 ROUTINE MEDICAL EXAM;Rec orded Elsewher e: No Locat ion: [facility] S ource: EHR Flux Core Welder clarisse: N Practi ce ID: [id number] Alexadner lable Time: 02:30:00 PM Kavya Edwards MD [address], [place], [address], [facility] 14:12:[address] Concept Completed 201506/03/2020 Encntr for general adult medical exam w/o abnormal findings ;Recorde d Elsewher e: No Locat ion: [facility] S ource: EHR Flux Core Welder clarisse: N Practi ce ID: [id number] Alexander lable Time: 11:30:00 AM Kavya Edwards MD [address], [place], [address], [facility] 14:13:06 Atypical squamous cells of undeterm ined signific ance on cervical Papanico laou smear [id number] Completed 201606/03/2020 Atyp squam cell of undet signfc cyto smr crvx (ASC-US) ;Recorde d Elsewher e: No Locat ion: Princess bern[facility] S ource: EHR Flux Core Welder clarisse: N Practi ce ID: [id number] Alexander lable Time: 02:00:00 PM Kavya Edwards MD [address], [place], [address], [facility] 14:15:20 Pregnanc y test negative [id number] Completed 201806/03/2020 Encounte r for pregnanc y test, result negative ;Recorde d Elsewher e: No Locat ion: Princess [facility] S ource: EHR Flux Core Welder clarisse: N Practi ce ID: [id number] Alexander lable Time: 02:30:00 PM Kavya Edwards MD [address], [place], [address], [facility] 14:13:01 Pelvic and perineal pain [id number] Completed 201806/03/2020 Pelvic pain;Rec orded Elsewher e: No Locat ion: Lorrietomeka bernabe [facility] S ource: EHR Flux Core Welder clarisse: N Practi ce ID: [id number] Alexander lable Time: 02:30:00 PM Kavya Edwards MD [address], [place], [address], [facility] 14:12:[address] Concept Completed 201806/03/2020 Encntr for consultant teacher exam (general ) (routine ) w/o abn findings ;Recorde d Elsewher e: No [facility]: EHR Flux Core Welder clarisse: N Practi ce ID: [id number] Alexander lable Time: 10:15:00 AM MD [address], [place], [address], [facility] 14:13:08 Body mass index 30+ - obesity [id number] Active 2020 Kavya Edwards MD [address], [place], [address], [facility] 15:59:50 Problem Notes None recorded. Procedures Surgical History Date Name Laterality Status Provider Name and Address Organization Details Recorded Time 11/30/19 25 Date of Last Mammogram completed [facility] 01/02/2025 16:17:26 08/05/19 24 Date of Last Pap Smear completed [facility] 09/12/2024 16:30:32 05/24/18 92 tonsillectomy completed [facility] 06/01/2020 10:43:42 Imaging Results None recorded. Procedure Notes None recorded. Medical Equipment None Reported. Allergies Allergen ID Allergen Name Allergen Category Reaction Reaction Severity Criticality Documentation Date Start Date Code Code System Note Provider Name and Address Organization Details Recorded Time 91186 latex environme nt,medica tion Not available Not available Not available 06/03/2020 21478 91 RxNorm [facility] 14:09:36 Medications Name Sig Start Date Stop Date Status Note LastModified by Organization Details LastModified Time id now influenza a & b 2 test kit TEST DIRECTED TODAY 07/20 completed Not Available Not Available Not Available doxycycli ne hyclate 100 mg capsule TAKE 1 CAPSULE BY MOUTH TWICE DAILY 07/20 completed Not Available Not Available Not Available estradiol 0.05 mg/24 hr semiweekl y transderm al patch Apply 1 patch twice a week by transder mal route. 2024 active Not Available Not Available Not Avai lable ciproflox acin 500 mg tablet TAKE 1 [...] Available HyProst capsule 06/03 completed Prescrib ed Elsewher e: Yes Loca tion: [facility] odify By: nathaniel ford DateTime : 06/14/19 14 01:30:00 PM Not Available Not Available Not Available multivita min capsule take 1 capsule by oral route every day 06/03 completed Prescrib ed Elsewher e: Yes Loca tion: [facility] odify By: nathaniel ford DateTime : 06/14/19 14 01:30:00 PM Not Available Not Available Not Available Daggett 3 active Not Available Not Avail able Not Available multivita min active Not Available Not Available Not Available IVETTE (28) 3 mg-0.02 mg tablet take 1 tablet by oral route every day 06/03 completed Prescrib ed Elsewher e: No Locat ion: [facility] odify By: michelle ford DateTime : 07/15/19 18 10:10:51 AM Not Available Not Available Not Available Pristiq 50 mg tablet,ex tended release take 1 tablet by ORAL route every day 03/03 completed Prescrib ed Elsewher e: Yes [facility] odify By: nathaniel ford DateTime : 12/28/19 [...] Not Available Slynd 4 mg (28) tablet Take 1 tablet every day by oral route. 2024 active Not Available Not Available Not Avai lable ID NOW COVID-19 Test Kit TEST DIRECTED TODAY 07/20 completed Not Available Not Available Not Available Fluarix Quad (PF) 60 mcg (15 mcg x 4)/0.5 mL IM syringe ADM 0.5ML IM UTD 07/16 completed Not Available Not Available Not Available Zepbound 2.5 mg/0.5 mL subcutane ous pen injector active Not Available Not Available Not Available Vitals Date Recorded Body height Body mass index (BMI) Body weight Systolic And Diastolic Systolic And Diastolic Provider Name and Address Organization Details Last Updated DateTime 07/16/2021 170.18 cm 34.8 kg/m2 060502.5 1 g 142/92 mm[Hg] 130/90 mm[Hg] Ana Jones [facility] 16:23:30 Date Recorded Body weight Systolic And Diastolic Provider Name and Address Organization Details Last Updated DateTime 07/20/2022 784853.35 g 124/85 mm[Hg] Ana Jones [facility] 07/20/2022 16:25:11 Date Recorded Systolic And Diastolic Provider Name and Address Organization Details Last Updated DateTime 08/05/2023 150/100 mm[Hg] RENETTA Truong P [address], [place], [address], [facility] 08/05/2023 17:33:18 Date Recorded Body weight Systolic And Diastolic Provider Name and Address Organization Details Last Updated DateTime 08/05/2023 526528.76 g 157/113 mm[Hg] Fanny Morris [facility] 08/05/2023 17:00:21 Date Recorded Body height Body mass index (BMI) Body weight Systolic And Diastolic Provider Name and Address Organization Details Last Updated DateTime 09/12/2024 170.18 cm 40.9 kg/m2 791384.05 g 135/89 mm[Hg] [facility] 09/12/2024 16:29:02 Date Recorded Body height Body mass index (BMI) Body weight Systolic And Diastolic Provider Name and Address Organization Details Last Updated DateTime 01/02/2025 170.18 cm 40.7 kg/m2 642569.02 g 129/89 mm[Hg] [facility] 01/02/2025 16:16:05 Social History Question Answer Notes LastModified by Organizat ion Details LastModified Time Tobacco Smoking Status Never Smoker Anasteve Abarcasusie fuchs, [facility] 06/03/2020 14:09:18 In The 14 Days Before Symptom Onset, Have You Had Close Contact With A Laboratory-confirm ed COVID-19 While That Case Was Ill? No [email or web address] Information n ot available 09/12/2024 In The 14 Days Before Symptom Onset, Have You Had Close Contact With A Person Who Is Under Investigation For COVID-19 While That Person Was Ill? No Information not available 09/12/2024 Have You Been To An Area Known To Be High Risk For COVID-19? No [email or web address] Information not available 09/12/2024 Sex: Unknown Functional Status None recorded. Mental Status None recorded. Family History Nothing Reported Notes:Half sister (M): dyspl elliott Maternal grandfather: Stroke, Heart disease, Hypertension Maternal grandmother: Heart disease Mother: Depression, Hypertension, Diabetes mellitus, Heart issues- has stents. Medical History Condition Response Allergies (Food, seasonal, environmental ) N Other N Breast Cancer N Drug/Latex Allergies/Reactions N Blood Transfusion N Dermatologic Disorders N Lung Disease N Defects or Inherited Disease N Breast Problem N Gestational Diabetes N Hematologic disorders N Anesthesia Complications N History of STI N Deep Vein Thrombosis N Polycystic ovary syndrome N Anxiety Disorder N Autoimmune disease N Arthritis N Infertility N Polyps N Acid Reflux (GERD) N History of abnormal pap N Cancer N Stroke N Varicosities N Neurologic/Epilepsy N Endometriosis N High Cholesterol N Headaches N Fibromyalgia N Kidney Disease N Heart Problems N Kidney or Bladder Problems N Thyroid Problems N GI Problems N Eating Disorder [...] Abnormal Pap Y Date of Last Mammogram 11/29/2024 Date of LMP Sexually Active? N STIs/STDs Y Menses Monthly N Date of Last Pap Smear 08/05/2023 Current Control Method BCPs LMP Unknown Obstetrics History GPAL:G 1 P 1 0 0 1 Type Value Full Term 1 Living 1 Total 1 Past Encounters Encounter ID Performer Location Encounter Start Date Encounter Closed Date Diagnosis/Indication Diagnosis SNOMED-CT Code Diagnosis ICD10 Code Diagnosis IMO Codes Diagnosis Note [id number] Kavya Edwards MD [place] [address],[place] [address] 06/03/2020 13:38:19 06/03/2020 16:02:23 Gynecologic examination 46890888 Z01.419 Surveillan ce of oral contraception 291501200 Z30.41 [id number] Kavya Edwards MD [place] [address],[place] [address] 07/16/2021 16:15:27 07/16/2021 17:36:53 Contraception care management 455606994 Z30.9 Gynecologi c examination 11875455 Z01.419 Elevated blood-pressure reading without diagnosis of hypertension 805766860 R03.0 [id number] Kavya Edwards MD [place] [address],[place] [address] 07/20/2022 15:50:25 07/21/2022 16:03:00 Gynecologic examination 30845220 Z01.419 Surveillan ce of oral contraception 362486948 Z30.41 Contracept ion care management 160025845 Z30.9 Mammography abnormal 168 697996 R92.8 [id number] DARRION Truong [place] [address],[place] [address] 08/05/2023 16:52:24 08/09/2023 14:39:31 Gynecologic examination 91092464 Z01.419 WWEpap updateddec lined STI screenmamm ogram orderedfas ting labs orderedenc ouraged annual exam with PCP Suggested Calcium with Vitamin D daily. Patient advised to get an annual flu shot in the fall and she could obtain at [facility] or [facility] clinic. Also to obtain TDap vaccinatio n [...] to this email. Adult heal th examination 269040422 Z00.00 Screening for malignant neoplasm of breast 162997230 Z12.39 Contracept ion care management 541212447 Z30.9 BP elevated x 2 (encourage d [...] read and signed. Pt verbalized understand ing. [id number] DARRION rTuong [place] [address],[place] [address] 09/12/2024 15:59:24 09/13/2024 13:45:25 Gynecologic examination 38016081 Z01.546 [id number] EB - slynd, refills sent x 12 months, [...] questions have been answered. Screening mammography 24 978222 Z12.31 [id number] Adult heal th examination 146754763 Z00.00 8910078 Menopause finding 814845 006 N95.1 [id number] Reviewed symptoms and management options discussed (hormonal [...] plan of care. Contracept ion care management 852970189 Z30.9 [id number] Bijal Daniel DEIDRA [place] [address],[place] [address] 01/02/2025 15:50:11 01/03/2025 11:38:33 Severe obesity 8294641177 9104 E66.813 Z68.41 [id number] Discussed options and would like to start zepboundrx sent, r/b/a reviewed, precaution s discussede xercise recommenda tions reviewed along , also rec monorail helper consultRTC for med check in 3 months Menopause finding 030630 006 N95.1 1120860 Doing well on current regimen and desires to continuere fills sent x 12 months , r/b/a reviewed Time spent in visit is a total of 30 mins with at least 50% of visit consisting of counseling and review of plan of care. Contracept ion care management 732773840 Z30.9 Health Concerns Section Related Observation LastModified by Organization Detai ls LastModified Time None Recorded Concern Status LastModified by Organization Details LastModified Time None Recorded Advance Directives Directive None Recorded Payers Insurance Date Sequence Insurance Name Policy Number Policy Juarez Covered Member ID Juarez Member ID Guarantor Name 07/17/2022 1 [facility] [id number] Franklyn Nolan [id number] Odalys Nolan 01/02/2025 1 [facility] [employer] (PPO) [id number] Odalys Nolan [id number] Odalys Nolan Notes Date Note Type Note Provider Name and Address Organization Details Recorded Time 2 text/html Patient is a 41yo who presents for an annual exam. No concerns. menstrual JOHNSON doing better on Mircette. last pap-05/2020 NILM mammogram-none sexually active-y contraception-ocp seatbelts-y exercise-n depression-denies domestic violence-denies tobacco-n concerns- Kavya Edwards MD [address], [place], [address], [facility] 07/16/2021 16:53:39 3 text/html Patient is a 42yo who presents for an annual exam. NO concerns. DOing well on OCP.last pap- 05/2020 NILM mammogram-diagnostic 11/2021 BIRADS 3, to repeat in 6 mos sexually active-y contraception-ocp, doing well seatbelts-y exercise-y depression-denies domestic violence-denies tobacco-n concerns- Kavya Edwards MD [address], [place], [address], [facility] 07/21/2022 09:21:51 4 text/html Annual GYNReported by PatientGenitourinary symptomsFor menstrual cycle, patient reportsnormal menses. For urinary symptoms, patient reportsno hematuriaandno incontinence. For vulva, patient reportsno genital lesion. For vagina, patient reportsnormal vaginal discharge.Breast symptomsFor breast, patient reportsno breast pain,no breast lump, andno nipple discharge.ContraceptionFo r current contraception, patient reportssatisfied with current contraceptionandoral contraceptives.Endocrine symptomsFor sexual complaints, patient reportsno sexual complaints,no pain during intercourse, andnormal libido. For menopausal symptoms, patient reportsno menopausal symptomsandnormal vaginal lubrication.Psychological symptomsFor psychological symptoms, patient reportsno depression,no anxiety, andno pmdd.Preventative measuresFor preventive measures, patient reportsencourage self breast examination,encourage regular exercise,encourage no tobacco use, andencourage regular mammograms starting age 40.last pap 05/2020 - normalon OCPs for BCdenies h/o DVT/PE, HTN, Stroke/SD, cancer, liver disease, or migraine with aurashe is a non-smoker DARRION Truong [address], [place], [address], [facility] 08/09/2023 10:52:02 5 text/html Annual GYNReported by PatientGenitourinary symptomsFor menstrual cycle, patient reportsnormal menses. For urinary symptoms, patient reportsno hematuriaandno incontinence. For vulva, patient reportsno genital lesion. For vagina, patient reportsnormal vaginal discharge.Breast symptomsFor breast, patient reportsno breast pain,no breast lump, andno nipple discharge.ContraceptionFo r current contraception, patient reportsoral contraceptives.Endocrine symptomsFor sexual complaints, patient reportsdecreased libidobut reportsno sexual complaintsandno pain during intercourse. For menopausal symptoms, patient reportshot flashesandinsomnia due to night sweatsbut reportsnormal vaginal lubrication.Psychological symptomsFor psychological symptoms, patient reportsno depression,no anxiety, andno pmdd.Preventative measuresFor preventive measures, patient reportsencourage self breast examination,encourage regular exercise,encourage no tobacco use, andencourage regular mammograms starting age 40.44yo wweB - slyndlast pap 07/2023 : nilm, HPV (-) has questions about perimenopause. Has been experiencing hot flashes, night sweats, weight gain, mood swings DARRION Truong [address], [place], [address], [facility] 09/13/2024 13:32:39 5 text/html 44yoPresents for med checkstarted transdermal estradiol (was already taking slynd) for perimenopause symptoms.hot flashes/night sweats/mood swings improved. Still having joint pain and unable to loose weight despite efforts DARRION Truong [address], [place], [address], [facility] 01/03/2025 09:45:32 OBGyn Episode Ob Episode Information Episode Created Date Number of Fetuses Patient Bloodtype Patient rh Status Prepregnancy Weight lbs Domestic Partner Domestic Partner Phone Father Name Excavator Backhoe Operator Status 06/01/19 21 1 CLOSED Fetus Data [...]
--- OUTSIDE RECORDS SUMMARY | 2025-03-23 22:36 | XMS_ITS | Encounter Summary ---
Author Organization [facility] Address 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
[2025-03-23 22:42] LABS: Hematocrit 40.4 % (37.0-47.0); Hemoglobin 13.0 g/dL (12.0-15.0); Immature Granulocyte Percent A 0.2 % (0-0.5); Lymphocytes Absolute Auto 2.67 K/mm3 (0.9-3.2); Mean Corpuscular HGB Conc 32.2 g/dl (32-36); Mean Corpuscular Hemoglobin 29.0 pg (26-34); Mean Corpuscular Volume 90.2 fl (80-100); Nucleated Red Blood Cells Absolute Auto 0.000 K/mm3 (0.0-0.012); Nucleated Red Blood Cells Perc 0.0 % (0.0-0.2); Platelet Count Result 306 k/mm3 (150-375); Red Blood Count 4.48 M/mm3 (4.2-5.4); White Blood Count 9.9 K/mm3 (4.5-10.0)
[2025-03-23 22:46] LABS: Alanine Aminotransferase 25 U/L (6-35); Albumin Level 4.2 g/dL (3.5-5.1); Alkaline Phosphatase 83 U/L (38-126); Anion Gap 7 mmol/L (4-12); Aspartate Amino Transferase 30 U/L (14-36); Bilirubin,Total 0.3 mg/dL (0.2-1.3); Blood Urea Nitrogen 24 mg/dL (7-17); Calcium 9.3 mg/dL (8.4-10.2); Carbon Dioxide 26 mmol/L (22-30); Chloride 107 mmol/L (98-107); Estimated CRCL calculation 88 ml/min; Estimated Glomerular Filt Rate > 60; Glucose 113 mg/dL (65-110); Lipase 208 U/L (23-300); Potassium 3.7 mmol/L (3.4-5.0); Sodium 140 mmol/L (137-145); Total Protein 7.7 g/dL (6.3-8.2)
[2025-03-23 22:56] LABS: INR 1.0; Partial Thromboplastin Time 26.5 Seconds (22.3-36.8); Prothrombin Time 13.2 Seconds (11.1-14.7)
[2025-03-23 22:58] LABS: Troponin I < 0.012 ng/mL (0.000-0.034)
[2025-03-24] VITALS (24 sets, daily range): BP systolic 99–125; BP diastolic 70–93; PULSE 63–100; RESP 17–27; O2SAT 98–100
--- NOTE | 2025-03-24 00:37 | ED_ITS ---
HPI - Chest Pain General Chief Complaint: Chest Pain Stated Complaint: arm pain, dizzy, light headed, sob, medial cp Time Seen by Provider: 03/23/25 21:36 History of Present Illness HPI narrative: patient is a 44-year-old female presented with chest pain. states she was sitting comfortably and suddenly had right arm pain that then radiated to her chest and was accompanied by shortness of breath. She then got up out of her chair and became dizzy. she rates the pain a 6/10 and it spreads across her chest. It does not radiate to her back. Nothing makes it better or worse. patient reports maternal history of heart disease. patient endorses a previous instance of bradycardia which led to PCP getting an event monitor which demonstrated no significant abnormalities. does not see a stage manager. Denies fevers/chills or recent sick contacts and states that she ate and drank sufficiently today. She has an estrogen patch for menopausal symptoms and denies a smoking history. Related Data Home Medications ?Medication ?Instructions ?Recorded ?Confirmed ?Last Taken ?Type biotin 10,000 mcg chewable tablet mcg PO 07/10/2206/24 Unknown History (Hair, Skin and Nails (biotin)) lactobacillus combination no.4 3 3,000 mmu cells PO DA KAYLEE 07/10/22 07/10/24 Unknown History billion cell capsule (Probiotic) drospirenone (contraceptive) 4 mg 4 mg PO DAILY 07/10/24 Unknown History (28) tablet (Slynd) Allergies Allergy/AdvReac Type Severity Reaction Status Date / Time latex tape Allergy Mild rash Uncoded 12/22/23 15:10 Review of Systems 2 Review of Systems: All systems reviewed & are unremarkable except as noted in HPI and below [facility] Surgical History Surgical History History of tonsillectomy Family History Family History Mother Family history of osteoarthritis Grandparent Malignant neoplasm of prostate Social History Social History Smoking status: Never smoker Alcohol intake: current Do You Feel Safe in your Home?: Yes Lack of Transportation: No Lack of Food: Never True Current Housing: I Have Housing Concerned About Future Housing: No Difficulty Paying Gas/Electric Bills: No Difficulty Paying for Meds: No Currently Unemployed: No Education: Bachelor's Degree Difficulty w/ Childcare or Family Care: No Exam 2 Narrative: GENERAL: Well-appearing, well-nourished, and in no acute distress. HEAD: Normocephalic, atraumatic. EYES: PERRLA and EOMI. ENT: Nares clear, no rhinorrhea or epistaxis. Mucous membranes moist. Oropharynx without tonsillar hypertrophy exudate or other lesions. Bilateral TMs pearly colin non-bulging NECK: Supple. No adenopathy or masses. No carotid bruits or JVD CHEST: Clear to auscultation. No respiratory distress. No wheezes rales or rhonchi HEART: Regular rate and rhythm. No murmur heard. Normal peripheral pulses. ABDOMEN: Soft, nontender, nondistended, normal active bowel sounds. EXTREMITIES: Normal range of motion. No edema. SKIN: Warm, dry, no rash. NEURO: No focal deficits. Alert and oriented x3. PSYCH: Normal mood and affect Course Vital Signs Vital signs: Vital Signs Temperature 98.3 F 03/23/25 20:28 Pulse Rate 93 03/23/25 20:28 Respiratory Rate 15 03/23/25 20:28 Blood Pressure 146/93 H 03/23/25 20:28 Pulse Oximetry 98 03/23/25 20:28 Oxygen Delivery Room Air 03/23/25 20:28 Temperature 98.3 F 03/23/25 20:28 Pulse Rate 81 03/23/25 22:00 Respiratory Rate 21 H 03/23/25 22:00 Blood Pressure 117/92 H 03/23/25 22:00 Pulse Oximetry 98 03/23/25 22:00 Oxygen Delivery Room Air 03/23/25 20:28 MDM - Chest Pain MDM Narrative Medical decision making narrative: patient is a 44-year-old female presented with chest pain. states she was sitting comfortably and suddenly had right arm pain that then radiated to her chest, she then became short of breath and got up out of her chair and became dizzy. she rates the pain a 6/10 and it Spreads across her chest and it does not radiate to her back. Nothing makes it better or worse. patient reports maternal history of heart disease. patient endorses a previous instance of bradycardia which led to PCP getting an event monitor which demonstrated no significant abnormalities. does not see a stage manager. Denies fevers/chills or recent sick contacts in states that she ate and drink sufficiently today. She has no estrogen patch for menopausal symptoms and denies a smoking history. Patient's labs are without significant high risk changes and EKG is w/o acute ischemic changes. Pain alleviated with aspirin. First troponin, 3-hour, and 6- hour WNL (<0.012 ng/mL, 0.013, 0.013). Ambulated to bathroom without exacerbation or recurrence of chest pain. Cardiac risk factors reviewed. HEART score = 2. Patient is felt likely low risk for ACS and reasonable for further risk stratification testing as an outpatient. Pain was sudden in onset but without tearing or ripping quality. No other signs or symptoms to suggest aortic dissection. A low-risk Wells criteria is noted, PE is felt to be unlikely. No pneumonia seen on evaluation today. Patient is felt to be a reasonable candidate for continued evaluation as an outpatient. Patient in agreement and being discharged home in stable condition. Medical Records Data Attestation: I reviewed the patient's medical records. Lab Data Attestation: I reviewed the patient's lab results. 03/23/25 22:28 03/23/25 22:28 Labs: Lab Results 03/23/25 03/24/25 03/24/25 Range/Units 22:28 00:57 02:42 WBC 9.9 (4.5-10.0) K/mm3 RBC 4.48 (4.2-5.4) M/mm3 Hgb 13.0 (12.0-15.0) g/dL Hct 40.4 (37.0-47.0) % MCV 90.2 (80-100) fl MCH 29.0 (26-34) pg MCHC 32.2 (32-36) g/dl RDW 13.3 (11.5-14.5) % Plt Count 306 (150-375) k/mm3 MPV 8.9 (7.4-10.4) fl Immature Gran % (Auto) 0.2 (0-0.5) % Neut % (Auto) 60.9 (45.5-73.1) % Lymph % (Auto) 27.1 (18.3-44.2) % [place] % (Auto) 9.9 H (2.6-8.5) % Eos % (Auto) 1.6 (0-4.4) % Baso % (Auto) 0.3 (0.2-1.2) % Lymph # (Auto) 2.67 (0.9-3.2) K/mm3 [place] # (Auto) 1.0 H (0.1-0.6) K/mm3 Eos # (Auto) 0.2 (0-0.3) K/mm3 Baso # (Auto) 0.0 (0.0-0.1) K/mm3 Abs Immat Gran (auto) 0.02 (0.00-0.031) K/mm3 Absolute Neuts (auto) 6.0 (1.3-6.7) K/mm3 Absolute Nucleated RBC 0.000 (0.0-0.012) K/mm3 Nucleated RBC % 0.0 (0.0-0.2) % PT 13.2 (11.1-14.7) Seconds INR 1.0 APTT 26.5 (22.3-36.8) Seconds D-Dimer < 0.27 (<0.48) ug/mL Sodium 140 (137-145) mmol/L Potassium 3.7 (3.4-5.0) mmol/L Chloride 107 (98-107) mmol/L Carbon Dioxide 26 (22-30) mmol/L Anion Gap 7 (4-12) mmol/L BUN 24 H D (7-17) mg/dL Creatinine 0.84 (0.7-1.0) mg/dL Estim Creat Clear Calc 88 ml/min Estimated GFR > 60 (59 - ) Glucose 113 H (65-110) mg/dL Calcium 9.3 (8.4-10.2) mg/dL Total Bilirubin 0.3 (0.2-1.3) mg/dL AST 30 (14-36) U/L ALT 25 (6-35) U/L Alkaline Phosphatase 83 (38-126) U/L Troponin I < 0.012 0.013 0.013 (0.000-0.034) ng/mL Total Protein 7.7 (6.3-8.2) g/dL Albumin 4.2 (3.5-5.1) g/dL Lipase 208 (23-300) U/L Imaging Data Attestation: I personally reviewed and interpreted this imaging study as follows: Radiologist's impression: ITS Impressions Chest X-Ray 03/23/25 20:58 IMPRESSION: No acute lung findings.] [ ] ECG Data EKG #1: ECG completion date: 03/23/25 ECG completion time: 20:38 EKG Interpretation: normal rate, sinus rhythm and no ST changes Critical Care Time Critical Care Time Critical Care Time: No Discharge Plan Discharge Clinical Impression: Chest pain Qualifiers: Chest pain type: unspecified Qualified Code(s): R07.9 - Chest pain, unspecified Patient Disposition: Home Condition: Improved Instructions: Chest Pain (ED) Additional Instructions: Return to the Emergency Department if you experience fever, chest pain, shortness of breath, or any other symptoms that are concerning to you Take your home medications as prescribed Follow up with your primary care doctor Patient Language: Tamazight Prescriptions: No Action Slynd 4 mg (28) tablet 4 mg PO DAILY Probiotic 3 billion cell capsule 3,000 mmu cells PO DAILY Rx Instructions: administer with a meal Hair, Skin and Nails (biotin) 10,000 mcg tablet,chewable PO Follow-up/Referrals: Davidson Loza MD [Primary Care Provider, Family Practice] Quality HEART score for chest pain patients History: slightly suspicious ECG: normal Age: < or = to 45 years Risk factors: > or = to 3 risk factors of atherosclerotic disease Troponin: < or = to 1x normal limit Heart score: 2
--- NOTE | 2025-03-24 00:47 | ECG_ITS ---
Test Date: 2025-03-24 00:49:53 Measurements Intervals [place] Rate: 65 P: 22 GA: 167 QRS: 16 QRSD: 94 T: 21 QT: 384 QTc: 399 Interpretive Statements SINUS RHYTHM WITH SINUS ARRHYTHMIA LOW QRS VOLTAGE IN PRECORDIAL LEADS [QRS DEFLECTION < 1.0 mV IN CHEST LEADS] Compared to ECG 03/23/2025 20:38:21 Low QRS voltage now present Electronically Signed On 03-24-2025 12:01:48 CDT by Joshua Amor M.D.
[2025-03-24 01:42] LABS: Troponin I 0.013 ng/mL (0.000-0.034)
--- NOTE | 2025-03-24 02:30 | ECG_ITS ---
Test Date: 2025-03-24 02:41:23 Measurements Intervals Harper Rate: 71 P: 40 NC: 173 QRS: 18 QRSD: 93 T: 20 QT: 386 QTc: 420 Interpretive Statements SINUS RHYTHM WITH SINUS ARRHYTHMIA LOW QRS VOLTAGE IN PRECORDIAL LEADS [QRS DEFLECTION < 1.0 mV IN CHEST LEADS] Compared to ECG 03/24/2025 00:49:53 No significant changes Electronically Signed On 03-24-2025 12:02:25 CDT by Joshua Amor M.D.
[2025-03-24 03:09] LABS: Troponin I 0.013 ng/mL (0.000-0.034)
== END 2025-03-24 04:10 | disposition home or self-care (01) ==
PROVIDERS: Student in an Organized Health Care Education/Training Program; PCP Family Medicine Adolescent Medicine
DX: R07.9 Chest pain, unspecified (principal); R94.31 Abnormal electrocardiogram [ECG] [EKG]
CPT/HCPCS: 36415; 71046; 80053; 83690; 84484; 85025; 85380; 85610; 85730; 93005; 99284; A9270